=== PATIENT | female | born 1940 | race Caucasian/White ===

== ENCOUNTER 2019-10-27 19:34 | Emergency (ER) | payer MEDICARE, OTHER, SELFPAY ==
[2019-10-27] VITALS (18 sets, daily range): BP systolic 133–166; BP diastolic 68–83; PULSE 65–83; RESP 13–22; TEMP 37.1–37.9; O2SAT 92–97; BMI 23.6
--- NOTE | 2019-10-27 19:42 | ED_ITS ---
Entered by Lilibeth Staton, acting as scribe for Anya Werner DO HPI - Fever General: Chief Complaint: Weakness Stated Complaint: general weakness Time Seen by Provider: 10/27/19 19:39 Source: patient Mode of arrival: EMS Limitations: no limitations History of Present Illness: HPI Narrative: 79 yo f came to the er by ems for fever and just not feeling well. Onset was 2 days ago. Pt states that she just does not feel good and that has also had a fever for 2 days. Highest that the fever has been around 103. Pt also said that she came because her daughter was worried about her as well. MD elicited complaint: fever and weakness Onset (ago): day(s) (2 days ago) Exacerbating factors: nothing Relieving factors: nothing Associated symptoms: Reports no associated symptoms; Deny abdominal pain, back/flank pain, chills, chest pain, diarrhea, dysuria, extremity pain, headache(s), nasal congestion, nausea, sinus pain or vomiting Treatments prior to arrival fever: none Review of Systems Const: Denies: fever, chills, change in appetite or malaise Eyes: Denies: change in vision, blurry vision, eye discharge or eye redness ENMT: Denies: throat pain, uvular edema, painful swallowing, mouth pain, dental pain, nasal congestion or facial/sinus pain Card: Denies: chest pain, irregular heart rhythm, swelling of feet/ankles, shortness of breath on exertion, shortness of breath when lying down or leg pain with exertion Resp: Denies: shortness of breath, productive cough, wheezing or coughing up blood GI: Denies: abdominal pain, nausea, vomiting, diarrhea, constipation or fecal incontinence : Denies: flank pain, difficulty urinating, painful urination, urinary frequency, urinary urgency or urinary hesitancy Musc: Denies: neck pain, back pain, extremity pain or extremity swelling Skin/Breast: Denies: rash, itching, redness, yellow skin or dry skin Neuro: Denies: headache, numbness in extremities, weakness in extremities, changes in sensation, lack of coordination or difficulty walking Psych: Denies: anxiety, depression, mood swings, panic attacks, sleeping less, suicidal ideation or homicidal ideation Endo: Denies: excessive urination, excessive thirst or tired all the time Adarsh/Lymph: Denies: easy bruising, petechiae or enlarged lymph nodes All/Imm: Denies: hives, throat swelling, facial swelling, acute wheezing or seasonal allergies PFSH ED PFSH: Statuses (acute, chronic, etc) shown below reflect problem list status as previously entered and may not be historically accurate Social History Smoking and tobacco status: never smoked Physical Exam Const: COMMON NORMALS: no apparent distress, oriented x3, no limitations, healthy appearing, alert and well nourished GENERAL APPEARANCE: cooperative, comfortable, well kempt and well developed ORIENTATION/CONSCIOUSNESS: Yes awake, Yes oriented to person, Yes oriented to place and Yes oriented to time HENMT: COMMON NORMALS: normocephalic, head/scalp atraumatic, hearing grossly normal bilaterally, external ears normal, EAC's normal, TM's normal bilaterally, external nose normal, nasal mucous membranes and turbinates normal, moist oral mucous membranes, oropharynx normal, dentition normal and gingiva normal HEAD & SCALP: normal to inspection, normocephalic and atraumatic FACE & SINUS: normal facial exam NOSE: external nose normal and nasal mucous membranes and turbinates normal EXTERNAL EAR: Yes external ears normal EXTERNAL AUDITORY CANAL: EAC's normal TYMPANIC MEMBRANE: TM's normal bilaterally MOUTH: oral and palatal mucosa normal, lip normal and tongue normal THROAT: no uvular edema Eye: COMMON NORMALS: PERRL, EOMs intact bilaterally, conjunctivae normal, no scleral icterus and normal visual gabriel by confrontation GENERAL EYE: normal appearance of both eyes and normal light reflex VISUAL ACUITY: Yes acuity no rmal ALIGNMENT: Yes alignment normal PERIORBITAL: periorbital findings normal EYELID: eyelids normal CONJUNCTIVA: Yes conjunctivae normal SCLERA: sclerae normal PUPIL: Yes PERRL and Yes accommodation reflex normal DIRECT OPHTHALMOSCOPY: Yes normal light reflex Neck/C-Spine: COMMON NORMALS: full ROM, no lymphadenopathy, supple, no meningeal signs and no JVD GENERAL: Yes normal visual inspection CAROTIDS: Yes normal carotid upstroke CERVICAL SPINE: Yes cervical ROM normal Lymph: LYMPHATIC: no lymphadenopathy noted Chest: COMMONS NORMALS: inspection of chest normal CHEST: Yes symmetrical chest wall rise Resp: COMMON NORMALS: normal respiratory effort, no retractions, no use of accessory muscles and clear to auscultation bilaterally EFFORT & INSPECTION: Yes able to speak in complete sentences and Yes symmetric chest movement AUSCULTATION: clear to auscultation bilaterally Cardio: COMMON NORMALS: no JVD, regular rate, regular rhythm, S1 normal heart sound, S2 normal heart sound, no murmurs and peripheral pulses 2+ throughout RATE: regular rate RHYTHM: regular rhythm HEART SOUNDS: S1 normal and S2 normal PERIPHERAL PULSES: pulses 2+ throughout GI: COMMON NORMALS: normal to inspection, nondistended, normoactive bowel sounds and non-tender : COMMON NORMALS: Yes no CVA tenderness BLADDER/KIDNEY EXAM: Yes no CVA tenderness Back/Pelvis: COMMON NORMALS: no CVA tenderness, thoracic and lumbar spine normal to inspection, no thoracic nor lumbar tenderness and thoraco-lumbar ROM normal Extremity: COMMON NORMALS: normal to inspection, full ROM, normal capillary refill, no calf tenderness and no pedal edema Neuro: COMMON NORMALS: oriented x3, CN's II-XII intact bilaterally, moves all extremities, no focal motor deficits, no sensory deficits noted and gait normal SENSORIUM/ORIENTATION: Yes alert, Yes oriented to person, Yes oriented to place and Yes oriented to time MENINGEAL SIGNS: Yes no meningeal signs SPEECH: speech normal GAIT: Yes normal gait MOTOR EXAM: strength 5/5 throughout, no pronator drift and no tremor noted Psych: COMMON NORMALS: mental status grossly normal, thought process normal, cooperative, affect normal, speech normal and activity/motor behavior normal APPEARANCE: Yes well kempt SPEECH: Yes normal speech THOUGHT PROCESS: normal thought process THOUGHT CONTENT: Yes normal thought content IN SIGHT: insight good Skin: COMMON NORMALS: no rashes or lesions noted, no wounds, skin turgor normal and no jaundice GENERAL SKIN EXAM: no rashes or lesions noted and turgor normal Course Vital Signs: Vital signs: Vital Signs Temperature 100.3 F H 10/27/19 19:42 Pulse Rate 72 10/27/19 21:15 Respiratory Rate 17 10/27/19 21:15 Blood Pressure 166/74 10/27/19 21:25 Pulse Oximetry 94 10/27/19 21:25 MDM - Fever MDM Narrative: Medical decision making narrative: Patient presents with fever and generalized fatigue and malaise x 2 days. Noted to be febrile upon arrival. She is alert and oriented, co mild chest congestion no nv etc. Influenza A pos itive. Discussed results with patient and family, patient able to ambulate about the department. Advised I will allow her to go home, family agrees but advised if ANY deterioration she is to return for possible admission. Advised that symptom onset greater than 48 hours, therefore no prescription for Tamiflu. Medical Records: Attestation: I reviewed the patient's medical records. Lab Data: Attestation: I reviewed the patient's lab results. Labs: Lab Results 10/27/19 10/27/19 10/27/19 Range/Units 19:15 19:15 19:56 WBC 6.5 (4.0-10.0) 10^3/ uL RBC 4.75 (4.1-5.3) 10^6/u L Hgb 12.6 (11.5-15.3) g/dL Hct 38.6 (37.0-47.0) % MCV 81.3 (81-99) fL MCH 26.5 L (28.0-34.0) pg MCHC 32.6 (30.0-36.0) g/dL RDW 14.1 (12.1-15.1) % Plt Count 332 (130-400) 10^3/c mm MPV 9.3 (7.4-10.4) fL Neut % (Auto) 52.5 % Lymph % (Auto) 32.4 % Bleckley % (Auto) 11.8 % Eos % (Auto) 1.8 % Baso % (Auto) 1.2 % Neut # (Auto) 3.4 (1.8-7.7) 10^3/u L Lymph # (Auto) 2.1 (0.8-4.8) 10^3/u L Bleckley # (Auto) 0.8 (0.2-0.9) 10^3/u L Eos # (Auto) 0.1 (0.0-0.8) 10^3/u L Baso # (Auto) 0.1 (0.0-0.1) 10^3/u L Nucleated RBC % (a uto) 0 % Nucleated RBCs # 0.0 /100WBC Sodium 131 L (136-145) mmol/L Potassium 3.9 (3.5-5.1) mmol/L Chloride 93 L (98-107) mmol/L Carbon Dioxide 23 (22-29) mmol/L Anion Gap 18.9 (5-19) BUN 11 (8-23) mg/dL Creatinine 1.1 H (0.5-0.9) mg/dL Glucose 121 H (74-106) mg/dL POC Glucose 116 (70-110) mg/dL Calcium 9.9 (8.8-10.2) mg/Dl Total Bilirubin 0.3 (0.15-1.2) mg/dL AST 17 (0-32) U/L ALT 10 (0-33) U/L Alkaline Phosphata se 130 H (35-105) IU/L Total Protein 7.8 (6.6-8.7) g/dL Albumin 4.6 (3.5-5.2) g/dL Globulin 3.2 (1.3-4.6) g/dL Urine Color (Yellow) Urine Appearance (CLEAR) Urine pH (5-7) Ur Specific Gravit y (1.005-1.030) Urine Protein (Negative) Urine Glucose (UA) (Normal) Urine Ketones (Negative) Urine Occult Blood (Negative) Urine Nitrate (Negative) Urine Bilirubin (NEGATIVE) Urine Urobilinogen (Negative) mg/dL Ur Leukocyte Yenny ase (Negative) Urine RBC (0-2) /hpf Urine WBC (0-5) /hpf Ur Squamous Epith Cells (0-5) Urine Bacteria (NONE) Influenza Type A A g (Negative) POC Influenza B Ag (Negative) 10/27/19 10/27/19 Range/Units 20:02 21:03 WBC (4.0-10.0) 10^3/ uL RBC (4.1-5.3) 10^6/u L Hgb (11.5-15.3) g/dL Hct (37.0-47.0) % MCV (81-99) fL MCH (28.0-34.0) pg MCHC (30.0-36.0) g/dL RDW (12.1-15.1) % Plt Count (130-400) 10^3/c mm MPV (7.4-10.4) fL Neut % (Auto) % Lymph % (Auto) % Bleckley % (Auto) % Eos % (Auto) % Baso % (Auto) % Neut # (Auto) (1.8-7.7) 10^3/u L Lymph # (Auto) (0.8-4.8) 10^3/u L Bleckley # (Auto) (0.2-0.9) 10^3/u L Eos # (Auto) (0.0-0.8) 10^3/u L Baso # (Auto) (0.0-0.1) 10^3/u L Nucleated RBC % (a uto) % Nucleated RBCs # /100WBC Sodium (136-145) mmol/L Potassium (3.5-5.1) mmol/L Chloride (98-107) mmol/L Carbon Dioxide (22-29) mmol/L Anion Gap (5-19) BUN (8-23) mg/dL Creatinine (0.5-0.9) mg/dL Glucose (74-106) mg/dL POC Glucose (70-110) mg/dL Calcium (8.8-10.2) mg/Dl Total Bilirubin (0.15-1.2) mg/dL AST (0-32) U/L ALT (0-33) U/L Alkaline Phosphata se (35-105) IU/L Total Protein (6.6-8.7) g/dL Albumin (3.5-5.2) g/dL Globulin (1.3-4.6) g/dL Urine Color Yellow (Yellow) Urine Appearance Sl cloudy A (CLEAR) Urine pH 7 (5-7) Ur Specific Gravit y 1.010 (1.005-1.030) Urine Protein Neg (Negative) Urine Glucose (UA) Norm (Normal) Urine Ketones Negative (Negative) Urine Occult Blood Neg (Negative) Urine Nitrate Positive H (Negative) Urine Bilirubin Neg (NEGATIVE) Urine Urobilinogen Norm (Negative) mg/dL Ur Leukocyte Yenny ase 1+ H (Negative) Urine RBC 0-4 H (0-2) /hpf Urine WBC 25-40 H (0-5) /hpf Ur Squamous Epith Cells 0-4 H (0-5) Urine Bacteria 3+ H (NONE) Influenza Type A A g Positive H (Negative) POC Influenza B Ag Negative (Negative) Imaging Data^: CXR: Attestation: I personally reviewed and interpreted this imaging study as follows: My impression: nad EKG Data^: EKG 1: Attestation: I personally reviewed and interpreted this EKG as follows: EKG interpretation date: 10/27/19 EKG interpretation time: 19:59 Other EKG comments: nsr Discharge Plan Discharge Patient Disposition: Home, Self-Care Clinical Impression: Influenza A Condition: Stable Prescriptions: No Action Tylenol 325 mg Tablet 650 mg PO QID PRN (Reason: Pain) RF: 0 cetirizine 10 mg Tablet 10 mg PO DAILY PRN (Reason: Allergic Reaction) RF: 0 sotalol 80 mg Tablet 40 mg PO BID RF: 0 amlodipine 5 mg Tablet 7.5 mg PO DAILY RF: 0 Aspir-81 81 mg Tablet,Delayed Release (Dr/Ec) 81 mg PO DAILY RF: 0 levothyroxine 25 mcg Tablet 25 mcg PO DAILY RF: 0 warfarin 4 mg Tablet 4 mg PO DIRECTED RF: 0 warfarin 3 mg Tablet 3 mg PO DIRECTED RF: 0 Protonix 20 mg Tablet,Delayed Release (Dr/Ec) 40 mg PO DAILY PRN (Reason: Acid Reflux) RF: 0 niacin 500 mg Tablet 500 mg PO DAILY RF: 0 oxybutynin chloride 5 mg Tablet 5 mg PO DAILY RF: 0 cholecalciferol (vitamin D3) 2,000 unit Tablet 2,000 unit PO DAILY RF: 0 cyanocobalamin (vitamin B-12) 1,000 mcg Capsule 1,000 mcg PO DAILY RF: 0 Referrals: Abelardo Gannon DO [Primary Care Provider] - Discharge Diet: Plenty of fluids Discharge Activity: Resume usual activity Coding Level of Care Code ED Director Of Planning for Chg Fwd Exam Problem Focused The documentation recorded by the Shemar castillo Stephanie Lyn, accurately reflects the service I personally performed and the decisions made by Debbi calixto Amanda, DO Oct 27, 2019 19:34
--- NOTE | 2019-10-27 19:43 | XRR_ITS ---
PROCEDURE INFORMATION: Exam: XR Chest, 1 View Exam date and time: 10/27/2019 7:53 PM Age: 79 years old Clinical indication: Cough; Prior surgery; Surgery date: 6+ months; Surgery type: Stents TECHNIQUE: Imaging protocol: XR of the chest Views: 1 view. COMPARISON: CR Chest 2 views* [id number] 10/13/2017 7:15 AM FINDINGS: Patient is rotated and lung volumes are low, limiting assessment. Otherwise no focal pulmonary consolidation is demonstrated on this single frontal image. No significant obscuration of the lateral costophrenic angles is demonstrated. No significant vascular congestion is demonstrated. Visualized cardiac silhouette size appears within normal limits. XR/XR chest 1V portable [id number] IMPRESSION: No definite acute pulmonary process is demonstrated.
--- NOTE | 2019-10-27 19:43 | CTR_ITS ---
PROCEDURE INFORMATION: Exam: CT Head Without Contrast Exam date and time: 10/27/2019 7:47 PM Age: 79 years old Clinical indication: Dizziness; Additional info: Dizzy TECHNIQUE: Imaging protocol: Computed tomography of the head without contrast. Total DLP: 861.01 mGy-cm Radiation optimization: All CT scans at this facility use at least one of these dose optimization techniques: automated exposure control; mA and/or kV adjustment per patient size (includes targeted exams where dose is matched to clinical indication); or iterative reconstruction. COMPARISON: CT head wo con* [id number] 05/09/2018 1:28 PM FINDINGS: There is prominent low density in the bilateral periventricular white matter which may represent chronic small vessel ischemic disease in the appropriate clinical setting. The possibility of superimposed acute infarctions cannot be excluded; consider MRI brain (including diffusion images) for further assessment if clinically warranted and if patient has no contraindication to MRI. There are prominent intracranial arterial calcifications. There is mild cerebral cortical volume loss. Ventricles do not appear significantly dilated. No depressed calvarial fracture is demonstrated. There is opacification in some of the visualized paranasal sinuses, most compatible with mucosal disease. Visualized mastoid air cells demonstrate no significant opacification. CT/CT head wo con* [id number] IMPRESSION: Probable prominent chronic ischemic changes as discussed above. Radiation Dose CTDIVOL = (mGy): DLP = 861.01 (mGy-cm)
--- NOTE | 2019-10-27 19:43 | ECG_ITS ---
Measurements Intervals [place] Rate: 66 P: 65 RI: 186 QRS: 40 QRSD: 89 T: 36 QT: 448 QTc: 472 SINUS RHYTHM Compared to ECG 05/09/2018 13:51:28 No significant changes Electronically Signed On 10-28-2019 19:12:44 LITIGATION CLAIM REPRESENTATIVE by Sabina Mathews M.D. [email or web address]
[2019-10-27] MEDS: sodium chloride 0.9% 500 ML 999 ML IV (19:57)
[2019-10-27 20:00] LABS: Basophils # 0.1 10^3/uL (0.0-0.1); Basophils % 1.2 %; Eosinophils # 0.1 10^3/uL (0.0-0.8); Eosinophils % 1.8 %; Hematocrit 38.6 % (37.0-47.0); Hemoglobin 12.6 g/dL (11.5-15.3); Lymphocytes # 2.1 10^3/uL (0.8-4.8); Lymphocytes % 32.4 %; Mean Corpuscular HGB Conc 32.6 g/dL (30.0-36.0); Mean Corpuscular Hemoglobin 26.5 pg (28.0-34.0); Mean Corpuscular Volume 81.3 fL (81-99); Mean Platelet Volume 9.3 fL (7.4-10.4); Monocytes # 0.8 10^3/uL (0.2-0.9); Monocytes % 11.8 %; Neutrophils # 3.4 10^3/uL (1.8-7.7); Neutrophils % 52.5 %; Nucleated Red Blood Cells % 0 %; Platelet Count 332 10^3/cmm (130-400); Red Blood Count 4.75 10^6/uL (4.1-5.3); Red Cell Distribution Width 14.1 % (12.1-15.1); White Blood Count 6.5 10^3/uL (4.0-10.0)
[2019-10-27 20:01] LABS: Glucose Point of Care 116 mg/dL (70-110)
[2019-10-27 20:18] LABS: Alanine Aminotransferase 10 U/L (0-33); Albumin Level 4.6 g/dL (3.5-5.2); Alkaline Phosphatase 130 IU/L (35-105); Anion Gap 18.9 (5-19); Aspartate Amino Transferase 17 U/L (0-32); Blood Urea Nitrogen 11 mg/dL (8-23); Calcium 9.9 mg/Dl (8.8-10.2); Carbon Dioxide 23 mmol/L (22-29); Chloride 93 mmol/L (98-107); Globulin 3.2 g/dL (1.3-4.6); Glucose 121 mg/dL (74-106); Potassium 3.9 mmol/L (3.5-5.1); Sodium 131 mmol/L (136-145); Total Bilirubin 0.3 mg/dL (0.15-1.2); Total Protein 7.8 g/dL (6.6-8.7)
[2019-10-27 20:26] LABS: Influenza A by IFA Positive (Negative); Influenza B by IFA Negative (Negative)
--- NOTE | 2019-10-27 21:20 | PC.NURSE ---
Patient ambulating with a walker and 2 nursing staff members. Patient is tolerating ambulation well.
[2019-10-27 21:34] LABS: Add Urine Culture? Yes; Add Urine Microscopic? YES; Bacteria Urine 3+; Bilirubin Urine Neg (NEGATIVE); Blood Urine Neg (Negative); Glucose Urine UA Norm (Normal); Ketones Urine Negative (Negative); Leukocyte Esterase Urine 1+ (Negative); Nitrate Urine Positive (Negative); Protein Urine Neg (Negative); RBC Urine 0-4 /hpf (0-2); Squamous Epithelial Cell Urine 0-4 (0-5); Urine Color Yellow (Yellow); Urobilinogen Urine Norm (Negative); WBC Urine 25-40 /hpf (0-5); pH Urine 7 (5-7)
== END 2019-10-27 21:52 | disposition home or self-care (01) ==
PROVIDERS: Emergency Provider Emergency Medicine; Family Provider Family Medicine; PCP Family Medicine
DX: J10.1 Influenza due to other identified influenza virus with other respiratory manifestations (principal); Z79.82 Long term (current) use of aspirin; Z79.01 Long term (current) use of anticoagulants
CPT/HCPCS: 36416; 70450; 71045; 80053; 81003; 82962; 85025; 87077; 87086; 87186; 87804; 93005; 96360; 99282; J7040

== ENCOUNTER → 2019-10-31 10:30 | Outpatient (BNVA) | payer MEDICARE, OTHER, SELFPAY | PROVIDERS: Family Provider Family Medicine; PCP Family Medicine; Visit Provider Internal Medicine Cardiovascular Disease | DX: I48.91 Unspecified atrial fibrillation (principal) | CPT/HCPCS: 85610 ==

== ENCOUNTER → 2019-12-26 10:59 | Outpatient (BNVA) | payer MEDICARE, OTHER, SELFPAY | PROVIDERS: Family Provider Family Medicine; PCP Family Medicine; Visit Provider Internal Medicine Cardiovascular Disease | DX: I48.91 Unspecified atrial fibrillation (principal) | CPT/HCPCS: 85610 ==

== ENCOUNTER 2020-01-04 14:55 | Outpatient (CLI) | payer MEDICARE, OTHER, SELFPAY ==
--- NOTE | 2020-01-04 15:06 | MR_ITS ---
WS: [id number] MRI HEAD WITHOUT CONTRAST TECHNIQUE: Sagittal T1, T2 axial, T2 axial FLAIR, axial and coronal T1 images, axial susceptibility w eighted imaging, axial diffusion weighted images, and coronal T2 images were obtained. CLINICAL INFORMATION: MEMORY IMPAIRMENT,LOSS OF BALANCE, HX OF CVA COMPARISON: CT head 2019 FINDINGS: No evidence of restricted diffusion to suggest acute ischemia. Ventricular system and basal cisterns are patent. Moderate to advanced small vessel changes. Moderate parenchymal volume loss. Small vessel changes in the jimenez. Chronic lacunar infarct right cerebellum. Chronic lacunar infarcts in the thala mi bilaterally. Normal vascular flow voids at the skull base. No extra-axial fluid collections. Paran katia sinuses and mastoid air cells are well aerated. Normal optic chiasm and pituitary infundibulum. Moderate symmetric atrophy temporal lobes and hippoca mpal formations. No hemosiderin on susceptibly weighted images. MR/MR head wo con* [id number] IMPRESSION: 1. No evidence of restricted diffusion to suggest acute ischemia. 2. Moderate to advanced small vessel changes with moderate parenchymal volume loss. Small vessel changes in the jimenez. 3. Chronic lacunar infarct right cerebellum. 4. Chronic lacunar infarcts in the thalamus bilaterally. 5. Moderate symmetric atrophy involving the temporal lobes and hippocampal for mations.
== END 2020-01-04 14:56 | disposition home or self-care (01) ==
LOC: RADWPI 15:04
PROVIDERS: Family Provider Family Medicine; PCP Family Medicine; Visit Provider Family Medicine
DX: I63.9 Cerebral infarction, unspecified (principal); G31.89 Other specified degenerative diseases of nervous system; R41.3 Other amnesia; R26.89 Other abnormalities of gait and mobility; Z86.73 Personal history of transient ischemic attack (TIA), and cerebral infarction without residual deficits
CPT/HCPCS: 70551

== ENCOUNTER → 2020-05-14 13:52 | Outpatient (BNVA) | payer MEDICARE, OTHER, SELFPAY | PROVIDERS: Family Provider Family Medicine; PCP Family Medicine; Visit Provider Internal Medicine Cardiovascular Disease | DX: R42 Dizziness and giddiness (principal); I48.0 Paroxysmal atrial fibrillation; Z79.01 Long term (current) use of anticoagulants; I25.10 Atherosclerotic heart disease of native coronary artery without angina pectoris; I10 Essential (primary) hypertension; E78.01 Familial hypercholesterolemia; Z72.0 Tobacco use; M79.606 Pain in leg, unspecified | CPT/HCPCS: 85610 ==

== ENCOUNTER → 2020-11-18 15:51 | Outpatient (BNVA) | payer MEDICARE, OTHER, SELFPAY | PROVIDERS: PCP Family Medicine; Visit Provider Urology | DX: N39.0 Urinary tract infection, site not specified (principal); N95.2 Postmenopausal atrophic vaginitis; N39.41 Urge incontinence | CPT/HCPCS: 81003; 87086 ==

== ENCOUNTER 2021-02-09 12:39 | Outpatient (CLI) | payer MEDICARE, OTHER, SELFPAY ==
--- NOTE | 2021-02-09 13:08 | MR_ITS ---
WS: [id number] Exam: MR head wo/w con [id number] Date/Time of Exam: 02/09/2021 1:25 PM Reason For Exam: MEMORY IMPAIRMENT,CVA The brain is evaluated with multiplanar imaging in multiple imaging sequences both before and followi ng uneventful intravenous administration of gadolinium for contrast. There is a small area of restricted diffusion within the periventricular white matter substance along the body of the right lateral ventricle suggesting a small acute infarct. No sign of hemorrhage or m ass effect. There are microvascular ischemic changes identified in the cerebral white matter substanc e. No space-occupying mass or acute bleed is noted. Probable microvascular ischemic changes also note d in the brainstem. The cerebellum is unremarkable. The ventricles and basal cisterns are normal in t he size and configuration. Normal vascular flow voids are noted. Normal orbits and optic globes. The acoustic nerves are symmetrical side to side. There were no contrast-enhancing lesions seen. There is diffuse cerebral atrophy with volume loss. Fluid level noted in the right maxillary sinus suggesting active sinusitis. Remaining facial sinuses were clear. The mastoids are clear. MR/MR head wo/w con [id number] IMPRESSION: 1. Small acute infarct involving the periventricular white matter substance tony ng the body of the right lateral ventricle. No sign of mass effect or bleed. 2. Diffuse cerebral atrophy with volume loss and microvascular ischemic changes . Microvascular ischemic changes also noted in the brainstem. 3. Right maxillary sinusitis with fluid level.
[2021-02-09] MEDS: gadobenate dimeglumine 20 mL vial IV (13:51)
== END 2021-02-09 12:40 | disposition home or self-care (01) ==
PROVIDERS: PCP Family Medicine; Visit Provider Family Medicine
DX: R41.3 Other amnesia (principal); I63.9 Cerebral infarction, unspecified; G31.9 Degenerative disease of nervous system, unspecified; J32.0 Chronic maxillary sinusitis
CPT/HCPCS: 70553; 81003; 87077; 87086; 87184; A9577

== ENCOUNTER 2021-02-16 13:01 | Outpatient (CLI) | payer MEDICARE, OTHER, SELFPAY ==
--- NOTE | 2021-02-16 14:15 | US_ITS ---
WS: [id number] ULTRASOUND RENAL TECHNIQUE: Ultrasound examination of both kidneys. CLINICAL INFORMATION: N30.80 - Other cystitis without hematuria COMPARISON: None. FINDINGS: RIGHT: Right kidney is normal in size and appearance. Echogenicity: Normal. Cortical thickness: 1.1 cm; Normal. Hydronephrosis: None. Perinephric fluid: None. Right kidney measures: 9.2,8.9 cm x 4.9,5.3 cm x 4.6,4.8 cm. LEFT: Left kidney is normal in size and appearance. Echogenicity: Normal. Cortical thickness: 1.3 cm; Normal. Hydronephrosis: None. Perinephric fluid: None. Left kidney measures: 9.4 cm x 5.6 cm x 4.9 cm. Normal visualized aorta. Normal bladder US/US renal BI* [id number] IMPRESSION: Normal renal ultrasound
--- NOTE | 2021-02-16 15:00 | XRR_ITS ---
PROCEDURE INFORMATION: Exam: XR Abdomen Exam date and time: 02/16/2021 1:09 PM Age: 80 years old Clinical indication: Condition or disease; Other: N30.80 - other cystitis without hematuria TECHNIQUE: Imaging protocol: XR of the abdomen. Views: Frontal supine view of the abdomen. 1 View. COMPARISON: No relevant prior studies available. FINDINGS: Gastrointestinal tract: There is prominence of the amount of stool in the colon. There is no evidence of bowel obstruction or dilatation. Bones/joints: A total right hip prosthesis is present. Chronic degenerative changes are present in the spine with joint space narrowing sclerosis and small osteophytes. Small calcifications projecting on the sacrum probably represent small benign calcified lymph nodes. XR/XR KUB [id number] IMPRESSION: Mild prominence of the amount of stool in the colon. No acute abnormalities are seen.
== END 2021-02-16 13:02 | disposition home or self-care (01) ==
LOC: US 13:01
PROVIDERS: PCP Family Medicine; Visit Provider Urology
DX: N30.80 Other cystitis without hematuria (principal)
CPT/HCPCS: 74018; 76770

== ENCOUNTER → 2021-03-11 14:58 | Outpatient (BNVA) | payer MEDICARE, OTHER, SELFPAY | PROVIDERS: PCP Family Medicine; Visit Provider Urology | DX: N39.0 Urinary tract infection, site not specified (principal) | CPT/HCPCS: 81003 ==

== ENCOUNTER 2021-03-13 13:55 | Outpatient (CLI) | payer MEDICARE, OTHER, SELFPAY ==
--- NOTE | 2021-03-13 14:15 | USCV_ITS ---
Erlin Janae Age: 80 Gender: F : 1940 Exam Date: 03/13/2021 14:38 Ordering Phys: Maribel Lemus MD [email or web address]) Technologist: Christy Prado Exam Location: [facility] [place] Indication: PVD Risk Factors: Previous Vascular Surgery: RIGHT LEFT BP: 152.0 / 70.00 BP: 164.0/ 71.00 0 0 Waveform Velocity (cm/s) Velocity (cm/s) Waveform Biphasic 100.8 Iliac Prox 140.6 Triphasic Biphasic 94.7 Iliac Mid 136.8 Biphasic Biphasic 92.3 Iliac Distal 126.5 Monophasic Biphasic 81.9 DISPLAY MANAGER 140.5 Monophasic Biphasic 93.5 SFA Prox 60.5 Monophasic Biphasic 95.4 SFA Mid 11.4 Monophasic Biphasic SFA Dist Monophasic 98.3 78.8 Biphasic 139.8 POP 55.0 Monophasic Biphasic 42.1 INTERNATIONAL ACCOUNT REPRESENTATIVE 20.7 Monophasic Biphasic 45.6 DPA 31.0 Monophasic 0.8 KHOA 0.7 FINDINGS RT INTERNATIONAL ACCOUNT REPRESENTATIVE = 120, RT DPA = 130 LT INTERNATIONAL ACCOUNT REPRESENTATIVE = 100, LT DPA = 110 Mild diffuse plaques in the femoral and popliteal arteries on the right side Mild to moderate diffuse plaques in the femoral, popliteal and infrapopliteal vessels on the left side CONCLUSIONS 1. Abnormal resting KHOA of 0.7 on the left side, with features suggestive of moderate peripheral artery disease. 2. Abnormal resting KHOA on the right side of 0.8, with features suggestive of mild peripheral artery disease. Dr Sabina Mathews MD [facility] (Electronically Signed) Final Date: 16 Mar 2021 12:22 S
--- NOTE | 2021-03-13 15:00 | USCV_ITS ---
Janae Kern Age: 80 Gender: F : 1940 Exam Date: 03/13/2021 14:15 Ordering Phys: Maribel Lemus MD Technologist: Christy Prado Exam Location: [facility] – [place] Indication: PVD, CAD BP: 155 / 69 HR: 72 Rhythm: Sinus Technical Quality: Adequate MEASUREMENTS (Male / Female) Normal Values 2D ECHO LV Diastolic Diameter PLAX 3.6 cm 4.2 - 5.9 / 3.9 - 5.3 cm LV Systolic Diameter PLAX 1.6 cm LV Chamber Size 2.9 cm IVS Diastolic Thickness 1.0 cm 0.6 - 1.0 / 0.6 - 0.9 cm IVS Systolic Thickness 1.4 cm LVPW Diastolic Thickness 2.1 cm 0.6 - 1.0 / 0.6 - 0.9 cm LVPW Systolic Thickness 2.1 cm RV Chamber Size 3.4 cm LVOT Diameter 2.0 cm LV Ejection Fraction 2D Teich 87.2 % LV Ejection Fraction MOD 2C 32.0 % LV Ejection Fraction 2C AL 30.4 % LA Diameter 3.3 cm LA Width 4.0 cm LA Height 5.4 cm RA Width 3.3 cm RA Height 4.1 cm Aorta at Sinotubular Diameter 2.1 cm M-MODE LV Diastolic Diameter MM 4.7 cm 4.2 - 5.9 / 3.9 - 5.3 cm LV Systolic Diameter MM 2.5 cm LV Ejection Fraction MM Teich 78.7 % IVS Diastolic Thickness MM 0.7 cm 0.6 - 1.0 / 0.6 - 0.9 cm IVS Systolic Thickness MM 1.1 cm LVPW Diastolic Thickness MM 1.6 cm 0.6 - 1.0 / 0.6 - 0.9 cm LVPW Systolic Thickness MM 1.9 cm Aortic Annulus Diameter 2.7 cm LA Ao Ratio MM 1.2 MV E Point Septal Separation 0.4 cm DOPPLER AV Peak Velocity 159.0 cm/s LVOT Peak Velocity 101.3 cm/s AV Area Cont Eq vti 2.4 cm squared AV Area Cont Eq pk 2.1 cm squared MV Area PHT 3.2 cm squared Mitral E to A Ratio 1.4 MV E' Velocity 55.0 cm/s Mitral E to MV E' Ratio 10.0 Mitral E to LV E' Lateral Ratio 8.4 Mitral E to LV E' Septal Ratio 12.4 TR Peak Velocity 296.3 cm/s TR Peak Gradient 35.1 mmHg TV Peak E Velocity 68.0 cm/s Right Atrial Pressure 3.0 mmHg Pulmonary Artery Systolic Pressu 38.1 mmHg PV Peak Velocity 81.0 cm/s RV Acceleration Time 0.1 s RV Ejection Time 0.3 s RV AcT/ET 0.4 FINDINGS Left Ventricle Normal left ventricular size, systolic function and mildly increased wall thickness, with no regional wall motion abnormalities. Left ventricular ejection fraction is estimated at 65 %. Normal diastolic function. Right Ventricle Normal right ventricular size and systolic function. Right ventricular systolic pressure 38.1 mmHg. Right Atrium Normal right atrial size. Left Atrium Mildly increased left atrial size. Mitral Valve Structurally normal mitral valve. No mitral valve stenosis. Mild mitral valve regurgitation. Aortic Valve Thickened and calcified trileaflet aortic valve. No aortic valve stenosis. Mild aortic valve regurgitation. Tricuspid Valve Structurally normal tricuspid valve. Trace to mild tricuspid valve regurgitation. Pulmonic Valve Pulmonic valve not well visualized. No pulmonary valve stenosis. Trace pulmonary valve regurgitation. Pericardium No pericardial effusion. Aorta Normal sized aortic root. Normal sized inferior vena cava. CONCLUSIONS 1. Normal left ventricular size, systolic function and mildly increased wall thickness, with no regional wall motion abnormalities. Left ventricular ejection fraction is estimated at 65 %. Normal diastolic function. 2. Normal right ventricular size and systolic function. 3. Mild aortic valve regurgitation. 4. Mild mitral valve regurgitation. 5. Pulmonary artery pressure estimated at 38 mm Hg. 6. No prior similar studies to compare. Maribel Lemus MD (Electronically Signed) Final Date: 15 Mar 2021 18:03 S
--- NOTE | 2021-03-13 15:45 | USCV_ITS ---
Janae Kern Age: 80 Gender: F : 1940 Exam Date: 03/13/2021 14:29 Ordering Phys: Maribel Lemus MD ([email or web address]) Technologist: Christy Prado Exam Location: [facility] – [place] Indication: PVD Risk Factors: Previous Vascular Surgery: Right Brachial BP: / Left Brachial BP: / Right Left Velocity (cm/s) Spectral Plaque Velocity (cm/s) Spectral Plaque Syst/Diast Broadening Syst/Diast Broadening 86.00/ 6.60 Prox CCA 52.10 / 10.30 56.20/ 11.00 Mid CCA 59.80 / 8.50 61.70/ 14.30 Distal CCA 73.50 / 13.70 78.30/ 16.50 Prox ICA 111.70/ 17.10 67.30/ 13.20 Mid ICA 65.40 / 11.20 54.00/ 12.10 Distal ICA 56.20 / 11.20 91.50 ECA 138.00 1.39 ICA/CCA 1.87 Antegrade Vertebral Antegrade 33.80/ 6.40 cm/s 46.50/ 9.30 cm/s Bi Subclavian Bi 96.00 50.10 FINDINGS Mild diffuse plaques at the bifurcation and internal carotid arteries bilaterally Intimal thickening in the common carotid arteries bilaterally Normal Doppler flow velocities Antegrade flow in the vertebral arteries bilaterally CONCLUSIONS Mild diffuse plaques at the bifurcation and internal carotid arteries bilaterally. No significant stenosis, based on the above findings Dr Sabina Mathews MD [facility] (Electronically Signed) Final Date: 16 Mar 2021 12:17 S
== END 2021-03-13 13:56 | disposition home or self-care (01) ==
LOC: RAD 14:02
PROVIDERS: PCP Family Medicine; Visit Provider Internal Medicine Cardiovascular Disease
DX: I63.9 Cerebral infarction, unspecified (principal); R42 Dizziness and giddiness; I25.10 Atherosclerotic heart disease of native coronary artery without angina pectoris; I67.82 Cerebral ischemia; I73.9 Peripheral vascular disease, unspecified; I08.0 Rheumatic disorders of both mitral and aortic valves; I65.23 Occlusion and stenosis of bilateral carotid arteries
CPT/HCPCS: 93306; 93880; 93925

== ENCOUNTER → 2021-07-07 14:08 | Outpatient (BNVA) | payer MEDICARE, OTHER, SELFPAY | PROVIDERS: PCP Family Medicine; Visit Provider Nurse Practitioner Family | DX: N39.41 Urge incontinence (principal); N39.0 Urinary tract infection, site not specified | CPT/HCPCS: 81003 ==

== ENCOUNTER → 2021-12-30 10:18 | Outpatient (BNVA) | payer MEDICARE, OTHER, SELFPAY | PROVIDERS: PCP Family Medicine; Visit Provider Internal Medicine Cardiovascular Disease | DX: Z79.01 Long term (current) use of anticoagulants (principal) ==

== ENCOUNTER → 2022-01-07 15:39 | Outpatient (BNVA) | payer MEDICARE, OTHER, SELFPAY | PROVIDERS: PCP Family Medicine; Visit Provider Internal Medicine Cardiovascular Disease | DX: Z79.01 Long term (current) use of anticoagulants (principal) ==

== ENCOUNTER → 2022-01-14 13:16 | Outpatient (BNVA) | payer MEDICARE, OTHER, SELFPAY | PROVIDERS: PCP Family Medicine; Visit Provider Internal Medicine Cardiovascular Disease | DX: I48.0 Paroxysmal atrial fibrillation (principal); Z79.01 Long term (current) use of anticoagulants ==

== ENCOUNTER → 2022-01-22 12:38 | Outpatient (BNVA) | payer MEDICARE, OTHER, SELFPAY | PROVIDERS: PCP Family Medicine; Visit Provider Internal Medicine Cardiovascular Disease | DX: Z79.01 Long term (current) use of anticoagulants (principal) ==

== ENCOUNTER → 2022-01-29 14:23 | Outpatient (BNVA) | payer MEDICARE, OTHER, SELFPAY | PROVIDERS: PCP Family Medicine; Visit Provider Internal Medicine Cardiovascular Disease | DX: Z79.01 Long term (current) use of anticoagulants (principal) ==

== ENCOUNTER → 2022-02-03 11:39 | Outpatient (BNVA) | payer MEDICARE, OTHER, SELFPAY | PROVIDERS: PCP Family Medicine; Visit Provider Internal Medicine Cardiovascular Disease | DX: Z79.01 Long term (current) use of anticoagulants (principal) ==

== ENCOUNTER → 2022-02-10 09:17 | Outpatient (BNVA) | payer MEDICARE, OTHER, SELFPAY | PROVIDERS: PCP Family Medicine; Visit Provider Internal Medicine Cardiovascular Disease | DX: Z79.01 Long term (current) use of anticoagulants (principal) ==

== ENCOUNTER → 2022-02-19 08:41 | Outpatient (BNVA) | payer MEDICARE, OTHER, SELFPAY | PROVIDERS: PCP Family Medicine; Visit Provider Internal Medicine Cardiovascular Disease | DX: Z79.01 Long term (current) use of anticoagulants (principal) ==

== ENCOUNTER → 2022-02-26 09:50 | Outpatient (BNVA) | payer MEDICARE, OTHER, SELFPAY | PROVIDERS: PCP Family Medicine; Visit Provider Internal Medicine Cardiovascular Disease | DX: Z79.01 Long term (current) use of anticoagulants (principal) ==

== ENCOUNTER → 2022-03-05 09:47 | Outpatient (BNVA) | payer MEDICARE, OTHER, SELFPAY | PROVIDERS: PCP Family Medicine; Visit Provider Internal Medicine | DX: Z79.01 Long term (current) use of anticoagulants (principal) ==

== ENCOUNTER → 2022-03-12 12:14 | Outpatient (BNVA) | payer MEDICARE, OTHER, SELFPAY | PROVIDERS: PCP Family Medicine; Visit Provider Internal Medicine Cardiovascular Disease | DX: Z79.01 Long term (current) use of anticoagulants (principal) ==

== ENCOUNTER → 2022-03-19 10:19 | Outpatient (BNVA) | payer MEDICARE, OTHER, SELFPAY | PROVIDERS: PCP Family Medicine; Visit Provider Internal Medicine Cardiovascular Disease | DX: Z79.01 Long term (current) use of anticoagulants (principal) ==

== ENCOUNTER → 2022-03-26 08:49 | Outpatient (BNVA) | payer MEDICARE, OTHER, SELFPAY | PROVIDERS: PCP Family Medicine; Visit Provider Internal Medicine | DX: Z79.01 Long term (current) use of anticoagulants (principal) ==

== ENCOUNTER → 2022-04-01 09:47 | Outpatient (BNVA) | payer MEDICARE, OTHER, SELFPAY | PROVIDERS: PCP Family Medicine; Visit Provider Internal Medicine | DX: Z79.01 Long term (current) use of anticoagulants (principal) ==

== ENCOUNTER → 2022-04-08 17:19 | Outpatient (BNVA) | payer MEDICARE, OTHER, SELFPAY | PROVIDERS: PCP Family Medicine; Visit Provider Internal Medicine | DX: Z79.01 Long term (current) use of anticoagulants (principal) ==

== ENCOUNTER → 2022-04-15 11:56 | Outpatient (BNVA) | payer MEDICARE, OTHER, SELFPAY | PROVIDERS: PCP Family Medicine; Visit Provider Internal Medicine Cardiovascular Disease | DX: I73.9 Peripheral vascular disease, unspecified (principal); I48.0 Paroxysmal atrial fibrillation; Z86.73 Personal history of transient ischemic attack (TIA), and cerebral infarction without residual deficits; M79.604 Pain in right leg; M79.605 Pain in left leg; Z79.01 Long term (current) use of anticoagulants; E78.01 Familial hypercholesterolemia; I25.10 Atherosclerotic heart disease of native coronary artery without angina pectoris; I10 Essential (primary) hypertension; F17.200 Nicotine dependence, unspecified, uncomplicated | CPT/HCPCS: 99213; 99214 ==

== ENCOUNTER → 2022-04-16 08:20 | Outpatient (BNVA) | payer MEDICARE, OTHER, SELFPAY | PROVIDERS: PCP Family Medicine; Visit Provider Internal Medicine | DX: Z79.01 Long term (current) use of anticoagulants (principal) ==

== ENCOUNTER → 2022-04-23 11:49 | Outpatient (BNVA) | payer MEDICARE, OTHER, SELFPAY | PROVIDERS: PCP Family Medicine; Visit Provider Internal Medicine | DX: Z79.01 Long term (current) use of anticoagulants (principal) ==

== ENCOUNTER → 2022-04-30 09:12 | Outpatient (BNVA) | payer MEDICARE, OTHER, SELFPAY | PROVIDERS: PCP Family Medicine; Visit Provider Internal Medicine Cardiovascular Disease | DX: Z79.01 Long term (current) use of anticoagulants (principal) ==

== ENCOUNTER → 2022-05-05 16:08 | Outpatient (BNVA) | payer MEDICARE, OTHER, SELFPAY | PROVIDERS: PCP Family Medicine; Visit Provider Internal Medicine | DX: Z79.01 Long term (current) use of anticoagulants (principal) ==

== ENCOUNTER → 2022-05-11 10:15 | Outpatient (BNVA) | payer MEDICARE, OTHER, SELFPAY | PROVIDERS: PCP Family Medicine; Visit Provider Internal Medicine | DX: Z79.01 Long term (current) use of anticoagulants (principal) ==

== ENCOUNTER 2022-07-12 08:04 | Outpatient (CLI) | payer MEDICARE, OTHER, SELFPAY ==
--- NOTE | 2022-07-12 08:30 | CT_ITS ---
WS: [id number] CTA ABDOMINAL AORTA WITH RUNOFF TECHNIQUE: Contrast enhanced CTA of the abdominal aorta with bilateral lower extremity runoff. Multip lanar reformatted images were obtained. MIP reformats were also reviewed. CLINICAL INFORMATION: leg pain COMPARISON: None. DLP: 919.[address] scans at [facility] use at least one of these dose optimization techniques: automated e xposure control; mA and/or kV adjustment per patient size (includes targeted exams where dose is matc hed to clinical indication); or iterative reconstruction. FINDINGS: Lobulated multifocal aneurysmal infrarenal abdominal aorta. Distal aneurysm measures 2.1 x 2.1 x 3.5 cm AP by transverse by craniocaudal. Smaller proximal infrarenal abdominal aortic aneurysm measuring 1.7 x 2.0 cm AP by transverse. Celiac and SMA are patent. Mild calcification at the celiac and SMA origins. Proximal renal arteries are patent. Mild calcification of the RIGHT renal artery ostia. KATYA is patent. Ulcerated atheromatous disease in the mid and distal abdominal aorta. This is similar in appearance to 2013. RIGHT SHANIQUA. Bilateral TKAs. Prior hysterectomy and cholecystectomy. Cardiomegaly. Bibasilar atelectasi s. Moderate esophageal hiatal hernia. Adrenal glands are normal. Portal vein and splenic vein are pat ent. Enhancing indeterminant lesion RIGHT hepatic lobe measuring 14 mm is new since 2013. This is non specific and metastatic disease not excluded. Cortical scarring both kidneys. Sigmoid diverticulosis. Diffuse bladder wall thickening.5 mm noncalcified nodule RIGHT lower lobe. RIGHT: 50% calcified stenosis involving the RIGHT common iliac origin. RIGHT common iliac artery is p atent. Moderate atheromatous disease. Internal iliac and external iliac arteries are patent. Common f emoral artery is patent. Superficial femoral and deep femoral arteries are patent. Mild to moderate s egmental atheromatous disease involving the superficial femoral artery with stenosis approximately 30 -40% in the proximal thigh. SFA remains patent to the adductor hiatus. Moderate approximately 50% anette nosis involving the proximal popliteal artery. Segmental moderate stenosis involving the popliteal ar audi which is patent to the trifurcation.Three-vessel runoff to the ankle. Poor flow in the posterior tibial artery. LEFT: LEFT common iliac artery is patent. Ulcerated atheromatous plaque in the mid common iliac arter y with ulceration/pseudoaneurysm measuring 10 mm. External iliac artery and internal iliac arteries a re patent. Common femoral artery is patent. Moderate stenosis involving the superficial femoral arter y in the proximal thigh measuring approximately 60%. Segmental moderate stenosis superficial femoral artery which remains patent to the mid thigh. Superficial femoral artery is occluded in the mid thigh . Proximal popliteal artery is occluded at the adductor hiatus. Reconstitution of the popliteal arter y [id number]. Mild to moderate segmental stenosis involving the popliteal artery which remains pa tent to the trifurcation. Three-vessel runoff to the ankle. CT/CT angio abd aorta runof [id number] IMPRESSION: 1. RIGHT: Moderate stenosis RIGHT common iliac artery origin measuring approxi mately 50%. Moderate segmental stenosis involving the superficial femoral and p opliteal arteries which remain patent. Three-vessel runoff to the ankle. Poor f low in the posterior tibial artery. 2. LEFT: Ulcerated atheromatous plaque in the mid common iliac artery with 10 mm ulceration/pseudoaneurysm. Superficial femoral artery is occluded in the mid thigh. Popliteal artery is occluded proximally but reconstitutes above the kne e. Three-vessel runoff to the ankle. 3. Lobulated multifocal aneurysmal infrarenal abdominal aorta. Distal aneurysm measures 2.1 x 2.1 x 3.5 cm AP by transverse by craniocaudal. Smaller proximal infrarenal abdominal aortic aneurysm measuring 1.7 x 2.0 cm AP by transverse. This is only slightly progressed since 2013. 4. 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 5. Celiac and SMA are patent. 6. Enhancing lesion in the RIGHT hepatic lobe measuring 14 mm is new compared to 2013. Recommend further evaluation with MRI liver without and with gadoliniu m enhancement. This may represent a hemangioma/FNH but metastatic disease not e xcluded. 7. 5 mm noncalcified nodule RIGHT lower lobe measuring 5 mm. Recommend 6 month follow-up chest CT. 8. Moderate esophageal hiatal hernia.
[2022-07-12 08:37] LABS: Blood Urea Nitrogen 11 mg/dL (8-23)
[2022-07-12] MEDS: iohexol 350 mg/mL 100 mL Btl IV (08:50)
== END 2022-07-12 08:05 | disposition home or self-care (01) ==
LOC: RAD 08:04
PROVIDERS: PCP Family Medicine; Visit Provider Internal Medicine Cardiovascular Disease
DX: I73.9 Peripheral vascular disease, unspecified (principal); I70.8 Atherosclerosis of other arteries; I71.4 Abdominal aortic aneurysm, without rupture; I70.0 Atherosclerosis of aorta; K44.9 Diaphragmatic hernia without obstruction or gangrene; M79.606 Pain in leg, unspecified
CPT/HCPCS: 75635; 82565; 84520

== ENCOUNTER → 2022-07-19 13:02 | Outpatient (BNVA) | payer MEDICARE, OTHER, SELFPAY | PROVIDERS: PCP Family Medicine; Visit Provider Nurse Practitioner Family | DX: I73.9 Peripheral vascular disease, unspecified (principal); I10 Essential (primary) hypertension; Z87.891 Personal history of nicotine dependence; I48.0 Paroxysmal atrial fibrillation; Z79.01 Long term (current) use of anticoagulants; Z79.82 Long term (current) use of aspirin | CPT/HCPCS: 99214 ==

== ENCOUNTER → 2022-07-27 11:58 | Outpatient (BNVA) | payer MEDICARE, OTHER, SELFPAY | PROVIDERS: PCP Family Medicine; Visit Provider Family Medicine | DX: I73.9 Peripheral vascular disease, unspecified (principal); I63.9 Cerebral infarction, unspecified; K76.9 Liver disease, unspecified; R91.1 Solitary pulmonary nodule | CPT/HCPCS: 80053; 85025; 85651 ==

== ENCOUNTER → 2022-08-16 11:04 | Outpatient (BNVA) | payer MEDICARE, OTHER, SELFPAY | PROVIDERS: PCP Family Medicine; Visit Provider Internal Medicine Cardiovascular Disease | DX: R91.1 Solitary pulmonary nodule (principal); K76.9 Liver disease, unspecified; I73.9 Peripheral vascular disease, unspecified; I63.9 Cerebral infarction, unspecified; Z79.01 Long term (current) use of anticoagulants; E78.01 Familial hypercholesterolemia; I10 Essential (primary) hypertension; I25.10 Atherosclerotic heart disease of native coronary artery without angina pectoris; I48.0 Paroxysmal atrial fibrillation; I71.40 Abdominal aortic aneurysm, without rupture, unspecified; Z87.891 Personal history of nicotine dependence | CPT/HCPCS: 99214 ==

== ENCOUNTER → 2023-02-14 12:20 | Outpatient (BNVA) | payer MEDICARE, OTHER, SELFPAY | PROVIDERS: PCP Family Medicine; Visit Provider Internal Medicine Cardiovascular Disease | DX: I71.40 Abdominal aortic aneurysm, without rupture, unspecified (principal); I73.9 Peripheral vascular disease, unspecified; Z79.01 Long term (current) use of anticoagulants; I48.0 Paroxysmal atrial fibrillation; R42 Dizziness and giddiness; E78.01 Familial hypercholesterolemia; Z72.0 Tobacco use; I10 Essential (primary) hypertension; I25.10 Atherosclerotic heart disease of native coronary artery without angina pectoris | CPT/HCPCS: 85610; 99214 ==

== ENCOUNTER 2023-03-17 07:59 | Outpatient (CLI) | payer MEDICARE, OTHER, SELFPAY ==
--- NOTE | 2023-03-17 08:00 | USCV_ITS ---
Janae Kern Age: 82 Gender: F : 1940 Exam Date: 03/17/2023 08:27 Ordering Phys: Koffi Powell MD ([email or web address]) Technologist: ARRON [place] [facility] [place]ication: WEAKNESS, CAD BP: 126 / 62 HR: 85 Rhythm: Atrial fibrillation Technical Quality: Adequate MEASUREMENTS (Male / Female) Normal Values 2D ECHO LVOT Diameter 2.0 cm LV Ejection Fraction MOD 2C 71.5 % LV Ejection Fraction 2C AL 73.4 % LA Diameter 3.6 cm LA Width 3.6 cm LA Height 5.0 cm RA Width 3.7 cm RA Height 4.6 cm Aorta at Sinotubular Diameter 2.1 cm IVC Diameter 1.7 cm M-MODE Aortic Annulus Diameter 2.1 cm LA Ao Ratio MM 1.5 MV E Point Septal Separation 0.5 cm DOPPLER AV Peak Velocity 121.0 cm/s LVOT Peak Velocity 87.0 cm/s AV Area Cont Eq vti 2.7 cm squared AV Area Cont Eq pk 2.2 cm squared MV Peak Velocity 124.0 cm/s MV Area PHT 5.0 cm squared MV E' Velocity 72.0 cm/s Mitral E to MV E' Ratio 10.6 Mitral E to LV E' Lateral Ratio 10.3 Mitral E to LV E' Septal Ratio 11.0 TR Peak Velocity 273.2 cm/s TR Peak Gradient 29.9 mmHg TR Mean Velocity 273.3 cm/s TR Mean Gradient 31.1 mmHg TR Velocity Time Integral 122.2 cm Right Atrial Pressure 3.0 mmHg Pulmonary Artery Systolic Pressu 32.9 mmHg PV Peak Velocity 99.0 cm/s RV Acceleration Time 0.1 s RV Ejection Time 0.3 s RV AcT/ET 0.3 FINDINGS Left Ventricle Left ventricle is normal in size. LV systolic function is normal with EF of 60 to 65%. No regional wall motion abnormalities are seen. Right Ventricle Normal in size and function Right Atrium Dilated Left Atrium Dilated Mitral Valve Mild mitral regurgitation. Aortic Valve Aortic valve is thickened. No significant stenosis. Moderate aortic regurgitation. Tricuspid Valve Mild tricuspid regurgitation. Pulmonary artery systolic pressure is 30 to 35 mmHg. Pulmonic Valve Not well visualized. Trace pulmonic regurgitation. Pericardium Normal Aorta Normal in size IVC Appears to be normal CONCLUSIONS LV systolic function is normal with EF of 60 to 65%. Biatrial dilation Mild mitral regurgitation Moderate aortic regurgitation Mild tricuspid regurgitation Trace pulmonic regurgitation Compared to prior echocardiogram from 2020, no significant changes are seen Villa Gilbert MD (Electronically Signed) Final Date: 26 March 2023 13:09 S
== END 2023-03-17 08:00 | disposition home or self-care (01) ==
LOC: RAD 08:06
PROVIDERS: PCP Family Medicine; Visit Provider Internal Medicine Cardiovascular Disease
DX: I71.40 Abdominal aortic aneurysm, without rupture, unspecified (principal); I73.9 Peripheral vascular disease, unspecified; Z79.01 Long term (current) use of anticoagulants; R53.1 Weakness; I25.10 Atherosclerotic heart disease of native coronary artery without angina pectoris; I34.0 Nonrheumatic mitral (valve) insufficiency; I35.1 Nonrheumatic aortic (valve) insufficiency; I07.1 Rheumatic tricuspid insufficiency
CPT/HCPCS: 93306; 99214

== ENCOUNTER 2023-06-20 19:07 | Inpatient (IN) | payer MEDICARE, OTHER, SELFPAY ==
[2023-06-20 19:14] VITALS: BP 147/74; PULSE 86; RESP 18; TEMP 39.4; O2SAT 86; BMI 28.7
--- NOTE | 2023-06-20 19:18 | XRR_ITS ---
PROCEDURE INFORMATION: Exam: XR Chest Exam date and time: 06/20/2023 7:26 PM Age: 82 years old Clinical indication: Other: Fever TECHNIQUE: Imaging protocol: Radiologic exam of the chest. Views: 1 view. COMPARISON: No relevant prior studies available. FINDINGS: Lungs: Mild interstitial prominence bilaterally, more prominent lower lungs. No focal consolidation. Pleural spaces: Unremarkable. No pleural effusion. No pneumothorax. Heart/Mediastinum: Cardiac silhouette is borderline prominent. Vasculature: Arteriosclerosis of the thoracic aorta. Bones/joints: Visualized osseous structures show no acute abnormality. XR/XR chest 1V portable [id number] IMPRESSION: 1. Borderline prominent cardiac size. 2. Bilateral mild interstitial prominence, more prominent about the lower lungs. This could represent chronic bilateral interstitial lung changes versus acute mild bilateral interstitial pneumonitis. No consolidation or effusion.
--- NOTE | 2023-06-20 19:21 | ECG_ITS ---
[facility] Test Date: 2023-06-20 Pat Name: Janae Kern Department: Room: Gender: Female Financial Services Assistant: : 1940 Requested By: Christiano Berrios Order Number: [id number] Marcial MD: Villa Gilbert M.D. Measurements Intervals [place] Rate: 85 P: 0 [place]: 0 QRS: 35 QRSD: 80 T: 26 QT: 365 QTc: 435 Interpretive Statements ATRIAL FIBRILLATION MODERATE ST DEPRESSION [0.05+ mV ST DEPRESSION] Compared to ECG 10/27/2019 19:59:42 ST (T wave) deviation now present Sinus rhythm no longer present Electronically Signed On 06-20-2023 22:27:30 CDT by Villa Gilbert M.D. [id number]
--- NOTE | 2023-06-20 19:23 | W.ED.FEVER ---
HPI - Fever General: Chief Complaint: Fever Stated Complaint: shoulder/back pain Time Seen by Provider: 06/20/23 19:09 Source: patient and EMS Mode of arrival: EMS Limitations: no limitations History of Present Illness: See nursing assessment. Patient's had general malaise for approximately 2 days. This started after a cat bite to her left ankle 4 days ago. She has had increased fatigue, subjective fever, nausea, back and shoulder pain bilaterally. She denies any cough or dysuria. She states she is occasionally incontinent of urine which is normal for her. Family states cat bite occurred on . states the cat is up-to-date on his vaccinations. Patient's last tetanus immunization was about 15 years ago. Patient states she has had some swelling and increased warmth to the left ankle area. Patient had temperature of 100.4 at home per EMS report. Patient had A blood sugar prior arrival 156. Patient was given Tylenol by family at home. Patient given 4 mg Zofran by EMS prior to arrival. Patient denies any abdominal pain. Associated symptoms: Reports nausea; Deny abdominal pain, flank pain, chills, chest pain, headache(s) or vomiting Review of Systems Const: Reports: fever(s), body aches, fatigue and malaise; Denies: chills Eyes: Denies: change in vision ENMT: Denies: throat pain Card: Denies: chest pain or palpitations Resp: Denies: dyspnea or wheezing GI: Reports: nausea; Denies: abdominal pain or vomiting : Denies: flank pain Musc: Denies: neck pain Skin/Breast: Reports: rash, erythema, skin pain, skin tenderness, skin swelling and other (Puncture wound to left anterior lateral ankle. Mild soft tissue swelling. ); Denies: pruritus Neuro: Denies: headache(s) or numbness in extremities Psych: Denies: anxiety Adarsh/Lymph: Denies: enlarged lymph nodes PFSH ED PFSH: Medical History Abdominal aortic aneurysm (AAA) Anticoagulant long-term use ASHD (arteriosclerotic heart disease) Atrial fibrillation CVA (cerebral vascular accident) Cystitis cystica Essential hypertension Fibromyalgia Hyperlipidemia IBS (irritable bowel syndrome) Leg pain PAD (peripheral artery disease) Recurrent UTI Seizure disorder Tobacco abuse Urgency incontinence Vaginal atrophy Surgical History H/O: hysterectomy S/P angioplasty with stent S/P cataract extraction S/P gold S/P hip replacement S/P knee replacement Family History Mother , at age 47 CAD (coronary artery disease) Father , in his 70's Cancer Social History Smoking and tobacco status: former smoker Alcohol intake: never Marital status: Current occupational status: retired Supplemental [facility] Information: Patient history of one coronary stent before. Last tetanus about 15 years ago Physical Exam Const: COMMON NORMALS: no acute distress, patient oriented x3, no limitations and well nourished GENERAL APPEARANCE: cooperative OTHER: Temperature 103.0 HENMT: COMMON NORMALS: normocephalic and atraumatic HEAD & SCALP: normocephalic and atraumatic FACE & SINUS: normal facial exam Eye: COMMON NORMALS: EOMs intact bilaterally Neck/C-Spine: COMMON NORMALS: full ROM, no lymphadenopathy, supple and no meningeal signs GENERAL: Yes normal visual inspection Lymph: LYMPHATIC: no lymphadenopathy noted Chest: COMMONS NORMALS: normal inspection of the chest and normal palpation of entire chest wall CHEST: No Ecchymosis present and No rash Resp: COMMON NORMALS: normal respiratory effort, No retractions and clear to auscultation bilaterally EFFORT & INSPECTION: No respiratory distress AUSCULTATION: clear to auscultation bilaterally Cardio: COMMON NORMALS: regular rhythm and Peripheral pulses 2+ throughout JUGULAR VENOUS DISTENTION: no JVD RHYTHM: regular rhythm PERIPHERAL PULSES: Peripheral pulses 2+ throughout GI: COMMON NORMALS: Normal to inspection, nondistended, normoactive bowel sounds present, Soft to palpation, non-tender, No hepatosplenomegaly present and no masses PALPATION: Yes Soft to palpation and Yes No hepatosplenomegaly present : COMMON NORMALS: Yes no CVA tenderness BLADDER/KIDNEY EXAM: Yes no CVA tenderness Back/Pelvis: COMMON NORMALS: no CVA tenderness Extremity: COMMON NORMALS: normal to inspection, full ROM and capillary refill normal OTHER: Puncture wound to left ankle, mild surrounding cellulitis. Mild induration. No purulent discharge. Mild tenderness with palpation. Neuro: COMMON NORMALS: patient oriented x3, CN's II-XII intact bilaterally, no focal motor deficits and no sensory deficits noted MENINGEAL SIGNS: Yes no meningeal signs Psych: COMMON NORMALS: mental status grossly normal and Normal thought process present THOUGHT PROCESS: Normal thought process present Skin: OTHER: Cellulitis and puncture wound to left anterior lateral ankle. Course Vital Signs: Vital signs: Vital Signs Temperature 103.0 F H 06/20/23 19:14 Pulse Rate 86 06/20/23 19:14 Respiratory Rate 18 06/20/23 19:14 Blood Pressure 147/74 06/20/23 19:14 Pulse Oximetry 86 L 06/20/23 19:14 Oxygen Delivery Me thod Room Air 06/20/23 19:14 MDM - Fever Medical Decision Making 82-year-old female with generalized malaise, myalgias, fever, cat bite to the left anterior lateral ankle. Differential diagnoses include sepsis, bacteremia, influenza, COVID, urinary tract infection, pyelonephritis. History of atrial fibrillation on Coumadin. Patient with fever and elevated white blood cell count. Therefore, will treat with meropenem to cover cat bite. Patient has a penicillin allergy. Therefore, carbapenem would be appropriate for this infection. 2138: Discussed with Dr. Barrett hospitalist. Admitted as an inpatient. I placed bridge orders. Lab Data 06/20/23 19:00 06/20/23 19:00 Radiology Impressions Chest X-Ray 06/20/23 19:18 IMPRESSION: 1. Borderline prominent cardiac size. 2. Bilateral mild interstitial prominence, more prominent about the lower lungs. This could represent chronic bilateral interstitial lung changes versus acute mild bilateral interstitial pneumonitis. No consolidation or effusion. ADDENDUM: 06/20/23 2016 Comparison image has been made available October 27, 2019. Increased interstitial markings with today's exam, and particularly about the lower lungs, in relation to prior exam. Therefore, mild interstitial pneumonitis should be considered. No consolidation or effusion. Ankle X-Ray 06/20/23 19:33 IMPRESSION: 1. No fracture or acute osseous abnormality. 2. Mild soft tissue swelling or edema, without identification soft tissue gas or radiopaque soft tissue foreign body density. Laboratory Results WBC 15.91 10^3/uL (3.29-11.43) H 06/20/23 19:00 RBC 4.90 10^6/uL (3.85-5.65) 06/20/23 19:00 Hgb 13.70 g/dL (11.27-16.99) 06/20/23 19:00 Hct 41.2 % (36-47) 06/20/23 19:00 MCV 84.1 fl (85-98) L 06/20/23 19:00 MCH 28.0 pg (27-33) 06/20/23 19:00 MCHC 33.3 g/dL (30-55) 06/20/23 19:00 RDW 14.9 % (12.1-15.1) 06/20/23 19:00 Plt Count 415 10^3/cmm (157-399) H 06/20/23 19:00 MPV 9.3 fL (7.4-10.4) 06/20/23 19:00 Neut % (Auto) 78.7 % 06/20/23 19:00 Lymph % (Auto) 11.4 % 06/20/23 19:00 [place] % (Auto) 7.4 % 06/20/23 19:00 Eos % (Auto) 1.3 % 06/20/23 19:00 Baso % (Auto) 0.6 % 06/20/23 19:00 Neut # (Auto) 12.52 10^3/uL (1.8-7.7) H 06/20/23 19:00 Lymph # (Auto) 1.8 10^3/uL (0.8-4.8) 06/20/23 19:00 [place] # (Auto) 1.2 10^3/uL (0.2-0.9) H 06/20/23 19:00 Eos # (Auto) 0.2 10^3/uL (0.0-0.8) 06/20/23 19:00 Baso # (Auto) 0.1 10^3/uL (0.0-0.1) 06/20/23 19:00 Nucleated RBC % (auto) 0 % 06/20/23 19:00 Nucleated RBCs # 0.0 /100WBC 06/20/23 19:00 Sodium 139 mmol/L (136-145) 06/20/23 19:00 Potassium 3.6 mmol/L (3.5-5.1) 06/20/23 19:00 Chloride 100 mmol/L (98-107) 06/20/23 19:00 Carbon Dioxide 26 mmol/L (22-29) 06/20/23 19:00 Anion Gap 16.6 (5-19) 06/20/23 19:00 BUN 14 mg/dL (8-23) 06/20/23 19:00 Creatinine 0.9 mg/dL (0.5-0.9) 06/20/23 19:00 GFR Calculation Not Reportable 06/20/23 19:00 Glucose 130 mg/dL (65-115) H 06/20/23 19:00 Calculated Osmolality 290 mOsm/kg (285-295) 06/20/23 19:00 Lactic Acid 2.0 mmol/L (0.5-2.2) 06/20/23 19:46 Calcium 9.7 mg/dL (8.5-10.5) 06/20/23 19:00 Total Bilirubin 0.3 mg/dL (0.15-1.2) 06/20/23 19:00 AST 16 U/L (0-32) 06/20/23 19:00 ALT 10 U/L (0-33) 06/20/23 19:00 Alkaline Phosphatase 129 U/L (35-105) H 06/20/23 19:00 Troponin T Baseline 15 ng/L (0-10) H 06/20/23 19:00 Troponin T 120 Minute Cancelled 06/20/23 19:46 Delta Troponin T Cancelled 06/20/23 19:46 Total Protein 7.4 g/dL (6.6-8.7) 06/20/23 19:00 Albumin 5.0 g/dL (3.5-5.2) 06/20/23 19:00 Globulin 2.4 g/dL (1.3-4.6) 06/20/23 19:00 Urine Color Yellow (Yellow) 06/20/23 19:48 Urine Appearance Sl cloudy (CLEAR) A 06/20/23 19:48 Urine pH 5 (5-7) 06/20/23 19:48 Ur Specific [place] 1.020 (1.005-1.030) 06/20/23 19:48 Urine Protein Neg (Negative) 06/20/23 19:48 Urine Glucose (UA) Norm (Normal) 06/20/23 19:48 Urine Ketones Negative (Negative) 06/20/23 19:48 Urine Blood Neg (Negative) 06/20/23 19:48 Urine Nitrate Positive (Negative) H 06/20/23 19:48 Urine Bilirubin Neg (Negative) 06/20/23 19:48 Urine Urobilinogen Neg mg/dL (Negative) 06/20/23 19:48 Ur Leukocyte Esterase Trace (Negative) H 06/20/23 19:48 Urine RBC None /hpf (0-2) 06/20/23 19:48 Urine WBC 10-15 /hpf (0-5) H 06/20/23 19:48 Ur Squamous Epith Cells 0-4 /hpf (0-5) H 06/20/23 19:48 Amorphous Sediment Not Reportable 06/20/23 19:48 Urine Bacteria 3+ /hpf (NONE) H 06/20/23 19:48 Influenza Type A Ag negative (Negative) 06/20/23 19:50 Influenza Type B Ag negative (Negative) 06/20/23 19:50 SARS-CoV-2 Ag (Rapid) negative (Negative) 06/20/23 19:50 Imaging Data CXR: I personally reviewed and interpreted this imaging study as follows: My impression: Nothing acute. No cardiomegaly. No pleural effusion or infiltrate seen. Xray Ortho: I personally reviewed and interpreted this imaging study as follows: My impression: Mild soft tissue swelling. No evidence of air in the tissue. No fractures or foreign body seen. EKG Data EKG 1: I personally reviewed and interpreted this EKG as follows: EKG interpretation date: 06/20/23 EKG interpretation time: 19:44 Interpretation: Atrial fibrillation rate control with heart rate 85. Normal axis. Nonspecific ST-T changes throughout. Normal QRS. Normal T waves. Normal QT interval. No P waves. Discharge Plan Discharge Patient Disposition: Admitted As Inpatient Admit Provider: Kadi Barrett Clinical Impression: Cat bite of ankle Qualifiers: Encounter type: initial encounter Laterality: left Qualified Code(s): S91.052A - Open bite, left ankle, initial encounter Fever Qualifiers: Fever type: due to other condition Qualified Code(s): R50.81 - Fever presenting with conditions classified elsewhere Urinary tract infection Qualifiers: Urinary tract infection type: acute pyelonephritis Qualified Code(s): N10 - Acute pyelonephritis Condition: Stable Coding Level of Care Code ED Surfacer Operator for Pito Brown
--- NOTE | 2023-06-20 19:33 | XRR_ITS ---
PROCEDURE INFORMATION: Exam: XR Left Ankle Exam date and time: 06/20/2023 7:44 PM Age: 82 years old Clinical indication: Edema; Yes, it is localized; Additional info: Pain; Cat bite; Fever, soft tissue films TECHNIQUE: Imaging protocol: Radiologic exam of the left ankle. Views: 3 or more views. COMPARISON: No relevant prior studies available. FINDINGS: Bones/joints: No fracture or acute osseous abnormality. Ankle joint appears maintained. No abnormal soft tissue calcification. Calcaneal spur or enthesophyte formation noted. Soft tissues: Mild soft tissue swelling or edema. No abnormal soft tissue gas or radiopaque soft tissue foreign body. XR/XR ankle LT min 3V* [id number] IMPRESSION: 1. No fracture or acute osseous abnormality. 2. Mild soft tissue swelling or edema, without identification soft tissue gas or radiopaque soft tissue foreign body density.
[2023-06-20 19:37] LABS: Basophils # 0.1 10^3/uL (0.0-0.1); Basophils % 0.6 %; Eosinophils # 0.2 10^3/uL (0.0-0.8); Eosinophils % 1.3 %; Hematocrit 41.2 % (36-47); Lymphocytes # 1.8 10^3/uL (0.8-4.8); Lymphocytes % 11.4 %; Mean Corpuscular HGB Conc 33.3 g/dL (30-55); Mean Corpuscular Volume 84.1 fl (85-98); Mean Platelet Volume 9.3 fL (7.4-10.4); Monocytes # 1.2 10^3/uL (0.2-0.9); Monocytes % 7.4 %; Neutrophils # 12.52 10^3/uL (1.8-7.7); Neutrophils % 78.7 %; Nucleated Red Blood Cells % 0 %; Platelet Count 415 10^3/cmm (157-399); Red Cell Distribution Width 14.9 % (12.1-15.1); White Blood Count 15.91 10^3/uL (3.29-11.43)
[2023-06-20 20:02] LABS: Troponin(5th) Baseline 15 ng/L (0-10)
[2023-06-20 20:05] LABS: Alanine Aminotransferase 10 U/L (0-33); Alkaline Phosphatase 129 U/L (35-105); Anion Gap 16.6 (5-19); Aspartate Amino Transferase 16 U/L (0-32); Blood Urea Nitrogen 14 mg/dL (8-23); Calcium 9.7 mg/dL (8.5-10.5); Carbon Dioxide 26 mmol/L (22-29); Chloride 100 mmol/L (98-107); Globulin 2.4 g/dL (1.3-4.6); Glucose 130 mg/dL (65-115); Osmolality Calculated 290 mOsm/kg (285-295); Potassium 3.6 mmol/L (3.5-5.1); Sodium 139 mmol/L (136-145); Total Bilirubin 0.3 mg/dL (0.15-1.2); Total Protein 7.4 g/dL (6.6-8.7)
[2023-06-20] MEDS: acetaminophen 325 mg Tablet 650 MG PO (20:16)
[2023-06-20] MEDS: tetanus-diphtheria tox (adult) 0.5 mL SDV IM (20:17)
[2023-06-20] MEDS: meropenem 2,000 MG in sodium chloride 0.9% (100 ml) 100 ML 200 MG IV (20:32)
[2023-06-20 20:51] LABS: Add Urine Culture? Yes; Bacteria Urine 3+ /hpf; Bilirubin Urine Neg (Negative); Blood Urine Neg (Negative); Glucose Urine UA Norm (Normal); Ketones Urine Negative (Negative); Leukocyte Esterase Urine Trace (Negative); Nitrate Urine Positive (Negative); Protein Urine Neg (Negative); Squamous Epithelial Cell Urine 0-4 /hpf (0-5); Urine Color Yellow (Yellow); Urobilinogen Urine Neg (Negative); pH Urine 5 (5-7)
[2023-06-20 20:58] LABS: Influenza A by IFA negative (Negative); Influenza B by IFA negative (Negative); SARS Covid-2 Antigen negative (Negative)
[2023-06-20 22:21] LABS: Troponin 5 2HR 16.06 ng/L (0-10)
[2023-06-20 22:23] VITALS: BP 126/78; RESP 18; O2SAT 90
[2023-06-20 22:23] LABS: Troponin 5 2HR Delta 1.06 ABS# (0-10)
[2023-06-20 22:30] VITALS: BP 142/80; PULSE 91; RESP 17; TEMP 38.2; O2SAT 91
--- NOTE | 2023-06-20 23:19 | PM.HP ---
Providers/Chief Complaint Admitting Physician: Kadi Barrett MD Primary Care Provider: Abelardo Gannon DO Chief Complaint: shoulder/back pain History of Present Illness Janae Kern is a 82 year old female with history of recurrent UTI , urinary incontinence ,peripheral artery disease cerebrovascular accident hypertension atrial fibrillation on Coumadin 5 mg daily presented with complaint of fever and body aches for 2 days. She reports that her cat bit on her left ankle 4 days ago and since then she has not been feeling well. She further reported that she was bleeding heavily from the bite site 5 days ago. In ER she was found to have temperature of 103 ?F. She denies any nausea vomiting shortness of breath chest pain urinary or bowel complaints. Review of Systems General: Reports: 10 or more systems reviewed and unremarkable except in HPI and below Medications/Allergies Home Medications Medication Instructions Recorded Confirmed Last Taken Type acetaminophen 325 mg tablet 650 mg PO QID PRN Pain 10/27/19 02/14/23 10/27/19 History (Tylenol) aspirin 81 mg tablet,delayed 81 mg PO DAILY 10/27/19 02/14/23 10/27/19 History release (Aspir-) cetirizine 10 mg tablet 10 mg PO DAILY PRN Allergic 10/27/19 02/14/23 10/27/19 History Reaction cholecalciferol (vitamin D3) 50 2,000 unit PO DAILY 10/27/19 02/14/23 10/27/19 History mcg (2,000 unit) tablet cyanocobalamin (vitamin B-12) 1,000 mcg PO DAILY 10/27/19 02/14/23 10/27/19 History 1,000 mcg capsule niacin 500 mg tablet 500 mg PO DAILY 10/27/19 02/14/23 10/27/19 History ascorbate calcium (vitamin C) 500 500 mg PO BID 04/10/21 02/14/23 Unknown History mg tablet zolpidem 5 mg tablet (Ambien) 5 mg PO 04/10/21 02/14/23 Unknown History warfarin 4 mg tablet 4 mg PO DAILY 3 months #90 tabs 08/24/21 06/15/23 Unknown Rx oxybutynin chloride 5 mg tablet 5 mg PO DAILY 07/26/22 02/14/23 Unknown History sotalol 80 mg tablet 40 mg PO BID #90 tabs 08/26/22 02/14/23 Unknown Rx amlodipine 10 mg tablet See Rx Instructions .Route 09/29/22 02/14/23 Unknown Rx .COMPLEX #90 tabs levothyroxine 50 mcg tablet 50 mcg PO DAILY #90 tabs 01/10/23 02/14/23 Unknown Rx citalopram 20 mg tablet See Rx Instructions .Route 04/01/23 Unknown Rx .COMPLEX #30 tabs methenamine hippurate 1 gram tablet 1 g PO BID #60 tabs 04/21/23 Unknown Rx nitrofurantoin 100 mg PO Q12H 5 days #10 caps 04/28/23 Unknown Rx monohydrate/macrocrystals 100 mg capsule (Macrobid) pantoprazole 40 mg tablet,delayed 40 mg PO DAILY #90 tabs 04/29/23 Unknown Rx release warfarin 3 mg tablet 3 mg PO DIRECTED #90 tabs 06/10/23 06/15/23 Unknown Rx Allergies Allergy/AdvReac Type Severity Reaction Status Date / Time ESTHER Inhibitors Allergy Severe Unknown Verified 06/20/23 19:27 amlodipine [From [facility]] Allergy Severe Unknown Verified 06/20/23 19:27 Jebibsm-ENT-EzF Reductase Allergy Severe Unknown Verified 06/20/23 19:27 Inhibitor codeine Allergy ADR-Vomitin Verified 06/20/23 19:27 g morphine Allergy ADR-Vomitin Verified 06/20/23 19:27 g HCTZ Allergy Severe Unknown Uncoded 06/20/23 19:27 PFSH Acute PFSH: Medical History Abdominal aortic aneurysm (AAA) Anticoagulant long-term use ASHD (arteriosclerotic heart disease) Atrial fibrillation CVA (cerebral vascular accident) Cystitis cystica Essential hypertension Fibromyalgia Hyperlipidemia IBS (irritable bowel syndrome) Leg pain PAD (peripheral artery disease) Recurrent UTI Seizure disorder Tobacco abuse Urgency incontinence Vaginal atrophy Surgical History H/O: hysterectomy S/P angioplasty with stent S/P cataract extraction S/P gold S/P hip replacement S/P knee replacement Family History Mother , at age 47 CAD (coronary artery disease) Father , in his 70's Cancer Social History Smoking and tobacco status: former smoker Alcohol intake: never Marital status: Current occupational status: retired Vitals/I&O/Wt Last Vital Signs Temp 103.0 F H 06/20/23 19:14 Pulse 86 06/20/23 19:14 Resp 18 06/20/23 22:23 BP 126/78 06/20/23 22:23 Pulse Ox 90 06/20/23 22:23 O2 Del Method Room Air 06/20/23 23:00 06/20/23 06/20/23 06/21/23 14:59 22:59 06:59 Intake Total 100 / 100 Balance 100 / 100 Weight last 48 hrs Weight 71.214 kg Physical Exam Narrative: She is alert awake oriented x3 cooperative not in acute distress Chest-clear to auscultation bilaterally Cardiovascular-heart sounds normal Abdomen-soft nontender nondistended normal bowel sounds Extremities-left ankle 1 to 2 cm laceration seen. Surrounding erythema warmth and swelling present. Normal peripheral pulses. Superficial varicose veins present. Data 06/20/23 19:00 06/20/23 19:00 Micro: Microbiology 06/20/23 20:04 Blood Culture - Preliminary Blood SPECIMEN COLLECTED 06/20/23 19:46 Blood Culture - Preliminary Blood SPECIMEN COLLECTED Xray Ortho: Radiologist's impression: IMPRESSION: 1. No fracture or acute osseous abnormality.? 2. Mild soft tissue swelling or edema, without identification soft tissue gas or radiopaque soft tissue foreign body density.? ? CXR: Radiologist's impression: IMPRESSION: 1. Borderline prominent cardiac size. 2. Bilateral mild interstitial prominence, more prominent about the lower lungs.? This could represent chronic bilateral interstitial lung changes versus acute mild bilateral interstitial pneumonitis.? No consolidation or effusion. EKG 1: My Interpretation: Atrial fibrillation with controlled ventricular rate No acute ST-T changes A&P Assessment and plan (1) Cat bite of ankle: Left ankle swelling erythema and warmth likely secondary to cellulitis secondary to cat bite and found to have leukocytosis. Will give IV ceftriaxone 1 g daily IV fluids normal saline at 60 mm/h P.o. Tylenol 650 mg every 6 hours as needed for fever Recheck labs in a.m. Qualifiers: Encounter type: initial encounter Laterality: left Qualified Code(s): S91.052A - Open bite, left ankle, initial encounter; W55.01XA - Bitten by cat, initial encounter (2) Fever: Fever secondary to cellulitis and UTI Qualifiers: Fever type: due to other condition Qualified Code(s): R50.81 - Fever presenting with conditions classified elsewhere (3) Urinary tract infection: Given history of recurrent UTI and leukocytosis, will cover with IV ceftriaxone 1 g daily. Continue IV fluids Qualifiers: Urinary tract infection type: acute pyelonephritis Qualified Code(s): N10 - Acute pyelonephritis Plan Continue home medications Cardiac diet Ambulate as needed Full code for now Attestations Medical Necessity Statement*: She needs to be admitted for IV fluids and IV antibiotics for left ankle cellulitis and UTI hence needs more than 2 days of inpatient hospitalization Time Spent in Patient Care: 25 minutes Coding Level of Care Code Acute Code for [facility] Diagnoses Cat bite of ankle S91.052A; W55.01XA Encounter type: initial encounter Laterality: left Fever R50.81 Fever type: due to other condition Urinary tract infection N10 Urinary tract infection type: acute pyelonephritis Time Spent (min) 25
[2023-06-21] VITALS (10 sets, daily range): BP systolic 115–184; BP diastolic 61–84; PULSE 78–106; RESP 15–42; TEMP 36.8–38; O2SAT 80–96
[2023-06-21] MEDS: sodium chloride 0.9% 1,000 ML 75 ML IV (00:02)
[2023-06-21] MEDS: pantoprazole 40 mg SDV IVP ×2 (00:06→23:05)
[2023-06-21] MEDS: cefTRIAXone 1,000 MG in sodium chloride 0.9% (plus) 50 ML 100 MG IV (00:23)
[2023-06-21] MEDS: acetaminophen 325 mg Tablet 650 MG PO (00:23)
[2023-06-21 05:30] LABS: Basophils # 0.1 10^3/uL (0.0-0.1); Basophils % 0.4 %; Eosinophils # 0.1 10^3/uL (0.0-0.8); Eosinophils % 0.2 %; Hematocrit 35.8 % (36-47); Lymphocytes # 2.7 10^3/uL (0.8-4.8); Lymphocytes % 10.5 %; Mean Corpuscular HGB Conc 31.8 g/dL (30-55); Mean Corpuscular Hemoglobin 27.3 pg (27-33); Mean Corpuscular Volume 85.6 fl (85-98); Mean Platelet Volume 9.5 fL (7.4-10.4); Monocytes # 2.4 10^3/uL (0.2-0.9); Monocytes % 9.3 %; Neutrophils # 20.12 10^3/uL (1.8-7.7); Neutrophils % 78.8 %; Nucleated Red Blood Cells % 0 %; Platelet Count 327 10^3/cmm (157-399); Red Blood Count 4.18 10^6/uL (3.85-5.65); Red Cell Distribution Width 15.1 % (12.1-15.1); White Blood Count 25.53 10^3/uL (3.29-11.43)
[2023-06-21 05:41] LABS: INR 1.79 (0.8-1.2)
[2023-06-21 05:52] LABS: Alanine Aminotransferase 8 U/L (0-33); Albumin Level 3.7 g/dL (3.5-5.2); Alkaline Phosphatase 82 U/L (35-105); Anion Gap 11.8 (5-19); Aspartate Amino Transferase 12 U/L (0-32); Blood Urea Nitrogen 18 mg/dL (8-23); Calcium 8.4 mg/dL (8.5-10.5); Carbon Dioxide 27 mmol/L (22-29); Chloride 103 mmol/L (98-107); Globulin 2.2 g/dL (1.3-4.6); Glucose 120 mg/dL (65-115); Osmolality Calculated 289 mOsm/kg (285-295); Potassium 3.8 mmol/L (3.5-5.1); Sodium 138 mmol/L (136-145); Total Bilirubin 0.5 mg/dL (0.15-1.2); Total Protein 5.9 g/dL (6.6-8.7)
--- NOTE | 2023-06-21 08:25 | USCV_ITS ---
Janae Kern Age: 82 Gender: F : 1940 Exam Date: 06/21/2023 09:58 Ordering Phys: Vaishnavi Navarro MD Technologist: Teddy Phan Exam Location: [facility] Indication: cat scratch fever BP: 134 / 76 HR: 82 Rhythm: Atrial fibrillation Technical Quality: Suboptimal MEASUREMENTS (Male / Female) Normal Values 2D ECHO LV Diastolic Diameter PLAX 4.5 cm 4.2 - 5.9 / 3.9 - 5.3 cm LV Systolic Diameter PLAX 2.5 cm IVS Diastolic Thickness 1.0 cm 0.6 - 1.0 / 0.6 - 0.9 cm IVS Systolic Thickness 1.6 cm LVPW Diastolic Thickness 1.3 cm 0.6 - 1.0 / 0.6 - 0.9 cm LVPW Systolic Thickness 1.5 cm LVOT Diameter 2.1 cm LV Ejection Fraction 2D Teich 76.8 % LV Ejection Fraction MOD 2C 67.1 % LV Ejection Fraction 2C AL 66.2 % LA Diameter 4.6 cm IVC Diameter 1.3 cm M-MODE Aortic Annulus Diameter 3.2 cm LA Ao Ratio MM 1.6 MV E Point Septal Separation 1.1 cm DOPPLER AV Peak Velocity 190.0 cm/s LVOT Peak Velocity 109.0 cm/s AV Area Cont Eq vti 2.1 cm squared AV Area Cont Eq pk 2.0 cm squared MV Area PHT 4.8 cm squared Mitral E to A Ratio 1.5 MV E' Velocity 77.5 cm/s Mitral E to MV E' Ratio 10.9 Mitral E to LV E' Lateral Ratio 8.1 Mitral E to LV E' Septal Ratio 16.9 TR Peak Velocity 309.7 cm/s TR Peak Gradient 38.4 mmHg TV Peak E Velocity 127.0 cm/s Right Atrial Pressure 3.0 mmHg Pulmonary Artery Systolic Pressu 41.4 mmHg RV Acceleration Time 0.1 s FINDINGS Left Ventricle Normal left ventricular size, systolic function and wall thickness, with no regional wall motion abnormalities. Rhythm precludes evaluation of diastolic function. Left ventricular ejection fraction is estimated at 65 %. Right Ventricle Normal right ventricular size and systolic function. Mild pulmonary hypertension, RVSP 41.4 mmHg. Right Atrium The right atrium is normal in size. Left Atrium Mildly increased left atrial size. Mitral Valve Structurally normal mitral valve. Mild mitral valve regurgitation. Aortic Valve Aortic valve not well visualized. Structurally normal trileaflet aortic valve. No aortic valve stenosis. Trace aortic valve regurgitation. Tricuspid Valve Structurally normal tricuspid valve. Anie-ux-fcmccpft tricuspid valve regurgitation. Pulmonic Valve Pulmonic valve not well visualized. Pericardium Normal pericardium without effusion. Aorta Normal ascending aorta dimension. IVC The inferior vena cava appears normal. CONCLUSIONS Normal left ventricular size, systolic function and wall thickness, with no regional wall motion abnormalities. Rhythm precludes evaluation of diastolic function. Left ventricular ejection fraction is estimated at 65 %. Mildly increased left atrial size. Structurally normal mitral valve. Mild mitral valve regurgitation. Aortic valve not well visualized. Structurally normal trileaflet aortic valve. No aortic valve stenosis. Trace aortic valve regurgitation. The previous study was done only 2 months ago. There has been no change. Dr. Koffi Powell MD (Electronically Signed) Final Date: 21 June 2023 18:11 S
--- NOTE | 2023-06-21 08:28 | PC.PHAR ---
pt states she takes care of her own medications-pt states she still takes ambien 5mg hs prn ext doesnt show when last filled rx shows written 04/10/21-
[2023-06-21] MEDS: doxycycline 100 MG in sodium chloride 0.9% (plus) 100 ML IV ×2 (10:22→20:20)
[2023-06-21] MEDS: lactated ringers 1,000 ML 999 ML IV ×2 (11:28→12:45)
--- NOTE | 2023-06-21 12:15 | P.PN_ITS ---
Subjective Subjective: Patient meets SIRS criteria, sepsis criteria met I have given her 2 L bolus Patient is endorsing feeling slightly better however endorsing pain in her left ankle Febrile episodes Lactic acid is normal blood cultures taken in the ER I have added doxycycline Vitals/I&O/Wt Last Vital Signs Temp 98.4 F 06/21/23 07:32 Pulse 84 06/21/23 09:00 Resp 16 06/21/23 07:32 BP 129/69 06/21/23 07:32 Pulse Ox 90 06/21/23 09:00 O2 Del Method Room Air 06/20/23 23:00 06/20/23 06/21/23 06/21/23 22:59 06:59 14:59 Intake Total 100 / 100 170 / 270 847.5 / 847.5 Balance 100 / 100 170 / 270 847.5 / 847.5 Weight last 48 hrs Weight 71.214 kg Physical Exam Narrative: Left ankle with good granulation tissue no active signs of purulence Hyperemia consistent with cellulitis Wound seems to be healing well with a scab Awake and alert Nonfocal neuro exam no signs of confusion S1, S2 Currently on room air Pleasant and cooperative Data 06/21/23 05:07 06/21/23 05:07 Micro: Microbiology 06/20/23 20:04 Blood Culture - Preliminary Blood SPECIMEN COLLECTED 06/20/23 19:46 Blood Culture - Preliminary Blood SPECIMEN COLLECTED A&P Assessment and plan (1) Cat bite of ankle: Qualifiers: Encounter type: initial encounter Laterality: left Qualified Code(s): S91.052A - Open bite, left ankle, initial encounter; W55.01XA - Bitten by cat, initial encounter (2) Fever: Qualifiers: Fever type: due to other condition Qualified Code(s): R50.81 - Fever presenting with conditions classified elsewhere (3) Urinary tract infection: Qualifiers: Urinary tract infection type: acute pyelonephritis Qualified Code(s): N10 - Acute pyelonephritis (4) Sepsis: (5) Recurrent UTI: (6) Anticoagulant long-term use: (7) Atrial fibrillation: Qualifiers: Atrial fibrillation type: paroxysmal Qualified Code(s): I48.0 - Paroxysmal atrial fibrillation Plan Sepsis related to UTI Cat bite Patient is currently on doxycycline and ceftriaxone Requested blood cultures and echo Rule out endocarditis Sepsis criteria met with fever, tachycardia, leukocytosis, creatinine 1.0 Given septic bolus, cultures taken We will follow-up with urine cultures Recurrent UTIs: Previous urine culture positive for Enterobacter and E. coli, pansensitive. Patient has follow-up with urologist in the past She patient will need to stay in the hospital until we know her final culture report Echo requested Continue cardiac diet Patient has history of A-fib no RVR Subtherapeutic INR, I would continue same dose of Coumadin for 1 more day and check INR tomorrow Full code DVT prophylaxis will be added by myself Attestations Medical Necessity Statement*: Continue medical management Coding Level of Care Code 84973 Moderate MDM includes number and complexity of problems actively addressed during encounter, amount and/or complexity of data reviewed/ordered and described risk of complication, morbidity or mortality of management as do cumented Diagnoses Cat bite of ankle S91.052A; W55.01XA Encounter type: initial encounter Laterality: left Fever R50.81 Fever type: due to other condition Urinary tract infection N10 Urinary tract infection type: acute pyelonephritis Sepsis A41.9 Recurrent UTI N39.0 Anticoagulant long-term use Z79.01 Atrial fibrillation I48.0 Atrial fibrillation type: paroxysmal
[2023-06-21] MEDS: enoxaparin 40 mg/0.4 mL Syringe SUBCUT (12:44)
[2023-06-21] MEDS: ketorolac 30 mg/mL INJ 15 MG IVP (13:46)
[2023-06-21] MEDS: FUROsemide 10 mg/mL SDV 4mL 40 MG IVP ×2 (21:21→21:28)
[2023-06-21] MEDS: ipratropium-albuterol 3 mL Neb INHALATION (21:23)
--- NOTE | 2023-06-21 22:08 | PM.CCNAC ---
Critical Care Event Note The high probability of a clinically significant, sudden or life threatening deterioration of the patient's [] system(s) required my full and direct attention, intervention and personal management. The critical care time is as shown. This time is in addition to time spent performing any reported procedures but includes the following: [x] Data and vital sign review and interpretation [x] Patient assessment, examination and intervention [x] Documentation [x] Medication orders and management Critical Care Time Code activated: No Critical Care Time (min): 40 Additional information about critical care time: Patient was found to have severe shortness of breath and difficulty breathing. As per the nurse she was found to be cyanotic with hypoxia of 84% on room air. Lung exam showed bilateral coarse rhonchi and wheezing. Likely secondary to fluid overload. She was put on 15 L oxygen back saturating at 88%. Hence started on BiPAP with settings of 16 /6/30 percent oxygen. She was further found to be tachypneic with respiratory rate of 35-40. She was given 2 doses of IV Lasix 40 mg stat, DuoNeb x1, Nolasco catheter insertion done. Will do stat ABG to assess the respiratory status. Discontinued IV fluids. Will monitor for now on BiPAP. She is alert awake and oriented x3. Coding Level of Care Code Critical Care Time Spent (min) 40
--- NOTE | 2023-06-21 22:15 | XRR_ITS ---
PROCEDURE INFORMATION: Exam: XR Chest Exam date and time: 06/21/2023 10:28 PM Age: 82 years old Clinical indication: Shortness of breath; Additional info: Shortness of breath and hypoxia TECHNIQUE: Imaging protocol: Radiologic exam of the chest. Views: 1 view. COMPARISON: CR XR chest 1V portable [id number] 06/20/2023 7:26 PM FINDINGS: Lungs: Emphysema. Interstitial opacities in both lung bases and right mid lung. No consolidation. Pleural spaces: Unremarkable. No pleural effusion. No pneumothorax. Heart/Mediastinum: Mild cardiomegaly. Bones/joints: Unremarkable. XR/XR chest 1V portable [id number] IMPRESSION: Cardiomegaly with probable mild interstitial pulmonary edema.
[2023-06-21 22:32] LABS: Add Urine Microscopic? YES; Bilirubin Urine Neg (Negative); Blood Urine Neg (Negative); Glucose Urine UA Norm (Normal); Ketones Urine Negative (Negative); Leukocyte Esterase Urine Trace (Negative); Nitrate Urine Negative (Negative); Protein Urine Neg (Negative); Urine Appearance Clear (CLEAR); Urine Color Colorless (Yellow); Urobilinogen Urine Neg (Negative); pH Urine 5 (5-7)
[2023-06-21 22:33] LABS: Add Urine Culture? No; Bacteria Urine TRACE /hpf; Squamous Epithelial Cell Urine 0-4 /hpf (0-5)
[2023-06-21 22:52] LABS: ABG PCO2 43.5 mmHg (35-45); ABG PH Result 7.39 (7.35-7.45); Alveolar-Arterial Oxygen Gradi 12.2 mmHg (5-10); Arterial Blood Gas Hematocrit 36.7 % (37-47); Base Excess ABG 1.1 mmol/L (-2.0-2.0); Blood Gas Allen Test Pos; Blood Gas Sample Site Radial, right; Blood Gas Sample Type Arterial; HCO3 ABG 26.4 mmol/L (22-26); HGB O2 Sat 92.4 % (95-100); Ionized Calcium Level - ABG 1.2 mmol/L (1.1-1.4); Methemoglobin 0.3 % (0.4-1.5); Oxygen Device BIPAP; Oxygen Saturation ABG 94.6; PO2 ABG 65.6 mmHg (80.0-100.0); Potassium Level - ABG 3.4 mmol/L (3.5-5.0)
--- NOTE | 2023-06-21 23:05 | PC.NURSE ---
at 1919 pt A&O x4, denied SOB, requested to remove O2 at that time, no resp distress noted, pt able to assist with rolling and lifting self up in bed. @2099 VENEER PATCHER answered call light and pt c/o SOB, had rapid resp, 02 sat 80 in room air, loud crackles noted, 02 placed back on pt and changed out to non-rebreather mask at 10L, O2 sat increasing between 92-94 pt color dusky, charge nurse called respiratory therapy and hospitalist, BP manually was 184/82, pt given 40 mg IV Lasix twice with approx 30 minutes in between doses, BP prior to second dose was 178/78, CPAP placed and duoneb given, continuous pu;se sox in place, avalos inserted, order placed for repeat UA, ABG, and another duoned 2 hours after initial dose. PRN order for duoneb in place, respiratory distress resolving, by 1944 pt color back to pink, pt awake and able to ask questions, lung sounds remains coarse but less. @2029 bp is 158/66, coarseness resolved, continue to have expiratory wheezes, pt wanting CPAP off, nurse explained to pt that pt currently needs CPAP for a little while longer reminded of what has occurred and pt agreed to keep CPAP on.
[2023-06-22] VITALS (11 sets, daily range): BP systolic 136–154; BP diastolic 64–83; PULSE 75–108; RESP 13–23; TEMP 36.4–37.1; O2SAT 92–98
[2023-06-22] MEDS: cefTRIAXone 2,000 MG in sodium chloride 0.9% (plus) 50 ML 100 MG IV (00:27)
[2023-06-22 04:44] LABS: Basophils # 0.1 10^3/uL (0.0-0.1); Basophils % 0.6 %; Eosinophils % 0.2 %; Hematocrit 34.9 % (36-47); Lymphocytes # 2.3 10^3/uL (0.8-4.8); Lymphocytes % 17.3 %; Mean Corpuscular HGB Conc 32.1 g/dL (30-55); Mean Corpuscular Hemoglobin 27.7 pg (27-33); Mean Corpuscular Volume 86.2 fl (85-98); Mean Platelet Volume 9.4 fL (7.4-10.4); Monocytes # 1.1 10^3/uL (0.2-0.9); Monocytes % 7.9 %; Neutrophils # 9.87 10^3/uL (1.8-7.7); Neutrophils % 73.6 %; Nucleated Red Blood Cells % 0 %; Platelet Count 295 10^3/cmm (157-399); Red Blood Count 4.05 10^6/uL (3.85-5.65); Red Cell Distribution Width 15.1 % (12.1-15.1); White Blood Count 13.42 10^3/uL (3.29-11.43)
[2023-06-22 05:11] LABS: Anion Gap 12.6 (5-19); Blood Urea Nitrogen 13 mg/dL (8-23); Calcium 8.7 mg/dL (8.5-10.5); Carbon Dioxide 30 mmol/L (22-29); Chloride 101 mmol/L (98-107); Glucose 120 mg/dL (65-115); Osmolality Calculated 291 mOsm/kg (285-295); Potassium 3.6 mmol/L (3.5-5.1); Sodium 140 mmol/L (136-145)
[2023-06-22] MEDS: doxycycline 100 MG in sodium chloride 0.9% (plus) 100 ML IV ×2 (08:05→20:31)
[2023-06-22] MEDS: FUROsemide 10 mg/mL SDV 2mL 20 MG IVP (09:41)
--- NOTE | 2023-06-22 10:40 | PM.PN ---
Subjective Subjective: Overnight events noted I will give her extra dose of Lasix Currently patient is on 2 L nasal cannula Off BiPAP Patient endorsing feeling better this morning Afebrile Vitals/I&O/Wt Last Vital Signs Temp 97.6 F 06/22/23 07:26 Pulse 96 06/22/23 09:51 Resp 17 06/22/23 09:51 BP 136/71 06/22/23 07:26 Pulse Ox 96 06/22/23 09:51 O2 Del Method Nasal Cannula 06/22/23 09:51 O2 Flow Rate 3 06/22/23 09:51 FiO2 30 06/22/23 01:42 06/21/23 06/22/23 06/22/23 22:59 06:59 14:59 Intake Total 340 / 3307.5 50 / 3357.5 340 / 340 Output Total 1900 / 1900 Balance 340 / 3307.5 -1850 / 1457.5 340 / 340 Weight last 48 hrs Weight 71.214 kg Physical Exam Narrative: Patient has mild crackles GCS 15 Nonfocal neuro exam Currently on nasal cannula 2 L Abdomen soft S1, S2 Left ankle redness and around cat bite is improving GCS 15 Pleasant and cooperative No audible stridor or wheezing Urinary Catheter Management: Nolasco: Cath Placed During This Visit: yes Reason for Continuing Indwelling Catheter: Accurate Measurement of Urinary Output in Critically Ill Patients Urinary Catheter Date of Insertion: 06/22/23 Urinary Catheter Time of Insertion: 21:30 Data 06/22/23 04:23 06/22/23 04:23 Micro: Microbiology 06/20/23 19:48 Urine Culture - Preliminary Urine,Clean Catch Gram Negative Rods 06/20/23 20:04 Blood Culture - Preliminary Blood NEGATIVE TO DATE 06/20/23 19:46 Blood Culture - Preliminary Blood NEGATIVE TO DATE A&P Assessment and plan (1) Sepsis: (2) Cat bite of ankle: Qualifiers: Encounter type: initial encounter Laterality: left Qualified Code(s): S91.052A - Open bite, left ankle, initial encounter; W55.01XA - Bitten by cat, initial encounter (3) Fever: Qualifiers: Fever type: due to other condition Qualified Code(s): R50.81 - Fever presenting with conditions classified elsewhere (4) Urinary tract infection: Qualifiers: Urinary tract infection type: acute pyelonephritis Qualified Code(s): N10 - Acute pyelonephritis (5) Recurrent UTI: (6) Atrial fibrillation: Qualifiers: Atrial fibrillation type: paroxysmal Qualified Code(s): I48.0 - Paroxysmal atrial fibrillation Plan Sepsis related to UTI: Resolved Cat bite: Wound seems to be healing well no signs of worsening No bacteremia no signs of endocarditis With septic bolus patient became fluid overloaded required BiPAP and diuresis Hypokalemia: Replenish potassium I would like to watch patient on Tuesday Wean oxygen to room air Give another dose of Lasix Possible discharge tomorrow Cardiac diet Full code Check INR tomorrow she was subtherapeutic, A-fib without RVR continue sotalol and Coumadin Attestations Medical Necessity Statement*: Discharge tomorrow Diagnoses Sepsis A41.9 Cat bite of ankle S91.052A; W55.01XA Encounter type: initial encounter Laterality: left Fever R50.81 Fever type: due to other condition Urinary tract infection N10 Urinary tract infection type: acute pyelonephritis Recurrent UTI N39.0 Atrial fibrillation I48.0 Atrial fibrillation type: paroxysmal
[2023-06-22] MEDS: warfarin 3 mg Tablet PO (13:38)
[2023-06-22] MEDS: enoxaparin 40 mg/0.4 mL Syringe SUBCUT (13:38)
[2023-06-22] MEDS: sotalol 80 mg Tablet 40 MG PO (17:16)
[2023-06-22] MEDS: aspirin 81 mg EC Tablet PO (20:31)
[2023-06-22] MEDS: pantoprazole 40 mg SDV IVP (23:28)
[2023-06-23] VITALS (9 sets, daily range): BP systolic 126–146; BP diastolic 45–70; PULSE 75–108; RESP 13–16; TEMP 36.7–36.9; O2SAT 90–96
[2023-06-23] MEDS: cefTRIAXone 2,000 MG in sodium chloride 0.9% (plus) 50 ML 100 MG IV (00:14)
[2023-06-23 05:10] LABS: Basophils # 0.1 10^3/uL (0.0-0.1); Basophils % 0.8 %; Eosinophils # 0.2 10^3/uL (0.0-0.8); Hematocrit 35.5 % (36-47); Lymphocytes # 2.3 10^3/uL (0.8-4.8); Lymphocytes % 23.3 %; Mean Corpuscular HGB Conc 31.8 g/dL (30-55); Mean Corpuscular Hemoglobin 27.3 pg (27-33); Mean Corpuscular Volume 85.7 fl (85-98); Mean Platelet Volume 9.5 fL (7.4-10.4); Monocytes # 1.1 10^3/uL (0.2-0.9); Monocytes % 11.7 %; Neutrophils # 5.95 10^3/uL (1.8-7.7); Neutrophils % 61.8 %; Nucleated Red Blood Cells % 0 %; Platelet Count 303 10^3/cmm (157-399); Red Blood Count 4.14 10^6/uL (3.85-5.65); Red Cell Distribution Width 14.6 % (12.1-15.1); White Blood Count 9.64 10^3/uL (3.29-11.43)
[2023-06-23] MEDS: amlodipine 10 mg Tablet PO (05:41)
[2023-06-23] MEDS: levothyroxine 50 mcg Tablet PO (05:41)
[2023-06-23 05:44] LABS: Anion Gap 12.3 (5-19); Blood Urea Nitrogen 13 mg/dL (8-23); Calcium 8.8 mg/dL (8.5-10.5); Carbon Dioxide 32 mmol/L (22-29); Chloride 98 mmol/L (98-107); Creatinine Clr Calc Pharmacy 51.8373; Glucose 94 mg/dL (65-115); Osmolality Calculated 288 mOsm/kg (285-295); Potassium 3.3 mmol/L (3.5-5.1); Sodium 139 mmol/L (136-145)
--- NOTE | 2023-06-23 08:10 | XR_ITS ---
WS: [id number] Portable AP upright chest, 06/23/2023 Clinical Data: oedema Comparison: Portable chest, 06/21/2023 Findings: No nodules, masses or effusions are seen. The heart is enlarged. The pulmonary vascularity is not increased. No pneumonia or pneumothorax is seen. The aortic arch and descending thoracic aorta show tortuosity. The diaphragms are flattened. Monitor leads are on the chest wall. Impression: 1. Cardiomegaly and atherosclerosis. 2. Hyperinflation.
[2023-06-23] MEDS: doxycycline 100 MG in sodium chloride 0.9% (plus) 100 ML IV (09:47)
[2023-06-23] MEDS: sotalol 80 mg Tablet 40 MG PO (09:49)
--- NOTE | 2023-06-23 10:59 | P.DS_ITS ---
Discharge Providers Date of Admission: 06/20/23 21:48 Date of Discharge: June 23, 2023 Attending Provider at Admission: Kadi Barrett MD Attending Provider at Discharge: Vaishnavi Navarro MD Primary Care Provider: Abelardo Gannon DO Diagnoses at Discharge Discharge Diagnosis (1) Sepsis: Status: Acute (2) Cat bite of ankle: Status: Acute Qualifiers: Encounter type: initial encounter Laterality: left Qualified Code(s): S91.052A - Open bite, left ankle, initial encounter; W55.01XA - Bitten by cat, initial encounter (3) Fever: Status: Acute Qualifiers: Fever type: due to other condition Qualified Code(s): R50.81 - Fever presenting with conditions classified elsewhere (4) Urinary tract infection: Status: Acute Qualifiers: Urinary tract infection type: acute pyelonephritis Qualified Code(s): N10 - Acute pyelonephritis (5) Recurrent UTI: Status: Acute (6) Atrial fibrillation: Status: Acute Qualifiers: Atrial fibrillation type: paroxysmal Qualified Code(s): I48.0 - Paroxysmal atrial fibrillation Reason for Visit Reason for Visit: shoulder/back pain Hospital Course Hospital Course 82-year female who was admitted for management and evaluation of sepsis related to UTI, she also suffering from a cat bite on her left ankle which seems to be getting better, her febrile episodes improved with use of doxycycline and ceftriaxone, cultures remain negative, she has history of recurrent UTI, has seen Dr. Phoenix in the past, patient developed pulm edema with septic bolus and then she required BiPAP and significant diuretic doses at the time of disch arge she is on room air, she was diuresed aggressively, we will do home oxygen evaluation before discharge previous urine culture showed E. coli and Enterobacter, pansensitive, I will add levofloxacin 10-day regimen, I will give her referral to see urologist at [facility] blood cultures negative I will also give her Lasix for a week because of mild crackles at base of her lungs Physical Exam Narrative: Mild crackles at base of lungs Currently on room air S1, S2 GCS 15 Left ankle wound healing well Pleasant and cooperative Abdomen soft Urinary Catheter Management: Nolasco: Cath Placed During This Visit: yes Reason for Continuing Indwelling Catheter: Other Urinary Catheter Date of Insertion: 06/22/23 Urinary Catheter Time of Insertion: 21:30 Discharge Data Studies Completed and Pending Completed Studies During Hospitalization Category Date Time Status XR ankle LT min 3V* [id number] Stat Exams 06/20/23 19:33 Completed XR chest 1V portable [id number] Routine Exams 06/23/23 08:10 Completed XR chest 1V portable [id number] Stat Exams 06/21/23 22:15 Completed XR chest 1V portable [id number] Urgent Exams 06/20/23 19:18 Completed CV. echo complete* [id number] Routine Ultrasound 06/21/23 08:25 Completed Pending at discharge Category Date Time Status Blood Culture Stat Lab 06/20/23 20:04 Results Urine Culture Stat Lab 06/20/23 19:48 Results Radiology Impressions Ankle X-Ray 06/20/23 19:33 IMPRESSION: 1. No fracture or acute osseous abnormality. 2. Mild soft tissue swelling or edema, without identification soft tissue gas or radiopaque soft tissue foreign body density. Laboratory Results WBC 9.64 10^3/uL (3.29-11.43) 06/23/23 04:30 RBC 4.14 10^6/uL (3.85-5.65) 06/23/23 04:30 Hgb 11.30 g/dL (11.27-16.99) 06/23/23 04:30 Hct 35.5 % (36-47) L 06/23/23 04:30 MCV 85.7 fl (85-98) 06/23/23 04:30 MCH 27.3 pg (27-33) 06/23/23 04:30 MCHC 31.8 g/dL (30-55) 06/23/23 04:30 RDW 14.6 % (12.1-15.1) 06/23/23 04:30 Plt Count 303 10^3/cmm (157-399) 06/23/23 04:30 MPV 9.5 fL (7.4-10.4) 06/23/23 04:30 Neut % (Auto) 61.8 % 06/23/23 04:30 Lymph % (Auto) 23.3 % 06/23/23 04:30 [place] % (Auto) 11.7 % 06/23/23 04:30 Eos % (Auto) 2.0 % 06/23/23 04:30 Baso % (Auto) 0.8 % 06/23/23 04:30 Neut # (Auto) 5.95 10^3/uL (1.8-7.7) 06/23/23 04:30 Lymph # (Auto) 2.3 10^3/uL (0.8-4.8) 06/23/23 04:30 [place] # (Auto) 1.1 10^3/uL (0.2-0.9) H 06/23/23 04:30 Eos # (Auto) 0.2 10^3/uL (0.0-0.8) 06/23/23 04:30 Baso # (Auto) 0.1 10^3/uL (0.0-0.1) 06/23/23 04:30 Nucleated RBC % (auto) 0 % 06/23/23 04:30 Nucleated RBCs # 0.0 /100WBC 06/23/23 04:30 PT 21.50 SECONDS (12.1-14.9) H 06/21/23 05:07 INR 1.79 (0.8-1.2) H 06/21/23 05:07 Specimen Type Arterial 06/21/23 22:16 Sample Site Radial, right 06/21/23 22:16 ABG pH 7.39 (7.35-7.45) 06/21/23 22:16 ABG pCO2 43.5 mmHg (35-45) 06/21/23 22:16 ABG pO2 65.6 mmHg (80.0-100.0) L 06/21/23 22:16 ABG HCO3 26.4 mmol/L (22-26) H 06/21/23 22:16 ABG O2 Saturation 94.6 06/21/23 22:16 ABG Base Excess 1.1 mmol/L (-2.0-2.0) 06/21/23 22:16 Jc Test Pos 06/21/23 22:16 A-a O2 Gradient 12.2 mmHg (5-10) H 06/21/23 22:16 Hematocrit 36.7 % (37-47) L 06/21/23 22:16 Hgb O2 Saturation 92.4 % (95-100) L 06/21/23 22:16 Carboxyhemoglobin 2.0 %THgb (0.4-20.1) 06/21/23 22:16 Methemoglobin 0.3 % (0.4-1.5) L 06/21/23 22:16 Total Hemoglobin 12.0 g/dL (12-16) 06/21/23 22:16 Sodium 138.0 mmol/L (131-143) 06/21/23 22:16 Potassium 3.4 mmol/L (3.5-5.0) L 06/21/23 22:16 Glucose 132.0 mg/dL (70-115) H 06/21/23 22:16 Ionized Calcium 1.2 mmol/L (1.1-1.4) 06/21/23 22:16 O2 Delivery Device Bipap 06/21/23 22:16 FiO2 30.0 % 06/21/23 22:16 Director Of Solutions Architecture ID [email or web address] 06/21/23 22:16 Sodium 139 mmol/L (136-145) 06/23/23 04:30 Potassium 3.3 mmol/L (3.5-5.1) L 06/23/23 04:30 Chloride 98 mmol/L (98-107) 06/23/23 04:30 Carbon Dioxide 32 mmol/L (22-29) H 06/23/23 04:30 Anion Gap 12.3 (5-19) 06/23/23 04:30 BUN 13 mg/dL (8-23) 06/23/23 04:30 Creatinine 0.8 mg/dL (0.5-0.9) 06/23/23 04:30 GFR Calculation Not Reportable 06/23/23 04:30 Glucose 94 mg/dL (65-115) 06/23/23 04:30 Calculated Osmolality 288 mOsm/kg (285-295) 06/23/23 04:30 Lactic Acid 2.0 mmol/L (0.5-2.2) 06/20/23 19:46 Calcium 8.8 mg/dL (8.5-10.5) 06/23/23 04:30 Total Bilirubin 0.5 mg/dL (0.15-1.2) 06/21/23 05:07 AST 12 U/L (0-32) 06/21/23 05:07 ALT 8 U/L (0-33) 06/21/23 05:07 Alkaline Phosphatase 82 U/L (35-105) 06/21/23 05:07 Troponin T Baseline 15 ng/L (0-10) H 06/20/23 19:00 Troponin T 120 Minute 16.06 ng/L (0-10) H 06/20/23 21:45 Delta Troponin T 1.06 ABS# (0-10) 06/20/23 21:45 Total Protein 5.9 g/dL (6.6-8.7) L D 06/21/23 05:07 Albumin 3.7 g/dL (3.5-5.2) 06/21/23 05:07 Globulin 2.2 g/dL (1.3-4.6) 06/21/23 05:07 Urine Color Colorless (Yellow) 06/21/23 21:43 Urine Appearance Clear (CLEAR) 06/21/23 21:43 Urine pH 5 (5-7) 06/21/23 21:43 Ur Specific Mason 1.010 (1.005-1.030) 06/21/23 21:43 Urine Protein Neg (Negative) 06/21/23 21:43 Urine Glucose (UA) Norm (Normal) 06/21/23 21:43 Urine Ketones Negative (Negative) 06/21/23 21:43 Urine Blood Neg (Negative) 06/21/23 21:43 Urine Nitrate Negative (Negative) 06/21/23 21:43 Urine Bilirubin Neg (Negative) 06/21/23 21:43 Urine Urobilinogen Neg mg/dL (Negative) 06/21/23 21:43 Ur Leukocyte Esterase Trace (Negative) H 06/21/23 21:43 Urine RBC None /hpf (0-2) 06/21/23 21:43 Urine WBC 5-10 /hpf (0-5) H 06/21/23 21:43 Ur Squamous Epith Cells 0-4 /hpf (0-5) H 06/21/23 21:43 Amorphous Sediment Not Reportable 06/21/23 21:43 Urine Bacteria Trace /hpf (NONE) 06/21/23 21:43 Influenza Type A Ag negative (Negative) 06/20/23 19:50 Influenza Type B Ag negative (Negative) 06/20/23 19:50 SARS-CoV-2 Ag (Rapid) negative (Negative) 06/20/23 19:50 Vitals Last Vital Signs Temp 98.1 F 06/23/23 08:14 Pulse 88 06/23/23 09:31 Resp 16 06/23/23 09:31 BP 137/66 06/23/23 08:14 Pulse Ox 92 06/23/23 09:31 O2 Del Method Room Air 06/23/23 09:31 O2 Flow Rate 3 06/22/23 20:00 FiO2 30 06/22/23 01:42 Discharge Plan Discharge Patient Disposition: Home Condition: Stable Prescriptions: New furosemide [Lasix] 20 mg tablet 20 mg PO DAILY Qty: 7 0RF levofloxacin 750 mg tablet 750 mg PO DAILY 10 Days Qty: 10 0RF potassium chloride 20 mEq tablet extended release 20 meq PO DAILY Qty: 7 0RF Continued zolpidem [Ambien] 5 mg tablet 5 mg PO BEDTIME PRN (Reason: Sleep) ascorbate calcium (vitamin C) 500 mg tablet 1,000 mg PO BID sotalol 80 mg tablet 40 mg PO BID Qty: 90 3RF methenamine hippurate 1 gram tablet 1 g PO BID Qty: 60 12RF Rx Instructions: Take 1000 mg of vitamin C with each dose of methenamine pantoprazole 40 mg tablet,delayed release (DR/EC) 40 mg PO DAILY Qty: 90 3RF acetaminophen [Tylenol] 325 mg Tablet 650 mg PO BEDTIME cetirizine 10 mg Tablet 10 mg PO DAILY PRN (Reason: Allergic Reaction) niacin 500 mg Tablet 500 mg PO DAILY cholecalciferol (vitamin D3) 2,000 unit Tablet 2,000 unit PO DAILY cyanocobalamin (vitamin B-12) 1,000 mcg Capsule 1,000 mcg PO DAILY Aspir-81 81 mg Tablet,Delayed Release (Dr/Ec) 81 mg PO BEDTIME warfarin 3 mg tablet 3 mg PO BEDTIME citalopram 20 mg tablet 20 mg PO QAM amlodipine 10 mg tablet 10 mg PO QAM levothyroxine 50 mcg tablet 50 mcg PO QAM Discharge Orders: Discharge Order (Routine); Ordered 06/23/23 Ordered By: Vaishnavi Navarro Referrals: Abelardo Gannon DO [Primary Care Provider] - Patient Instructions: Opioid Safety Discharge Attestations Time Spent in Discharge Care*: greater than 30 min Quality Metrics Clinical Quality Measures [ No reported AMI, CVA or VTE this stay] Coding Level of Care Code Acute Code for Chg Fwd Diagnoses Sepsis A41.9 Cat bite of ankle S91.052A; W55.01XA Encounter type: initial encounter Laterality: left Fever R50.81 Fever type: due to other condition Urinary tract infection N10 Urinary tract infection type: acute pyelonephritis Recurrent UTI N39.0 Atrial fibrillation I48.0 Atrial fibrillation type: paroxysmal
--- NOTE | 2023-06-23 13:04 | PC.SOCIAL ---
Pg 2 IMM Explained to pt Pg 2 IMM. No questions voiced. Provided pt a copy. Initialed, dated, & timed a copy & placed in chart.
== END 2023-06-23 13:55 | disposition home or self-care (01) | DRG 603 ==
LOC: ER 21:42 → MEDSURG 21:48
PROVIDERS: Admitting Provider Internal Medicine; Emergency Provider Family Medicine; PCP Family Medicine; Visit Provider Internal Medicine
DX: L03.116 Cellulitis of left lower limb (principal); N10 Acute pyelonephritis; B96.20 Unspecified Escherichia coli [E. coli] as the cause of diseases classified elsewhere; Z87.440 Personal history of urinary (tract) infections; I48.0 Paroxysmal atrial fibrillation; S91.052A Open bite, left ankle, initial encounter; W55.01XA Bitten by cat, initial encounter; Z79.82 Long term (current) use of aspirin; Z79.01 Long term (current) use of anticoagulants; I73.9 Peripheral vascular disease, unspecified; Z86.73 Personal history of transient ischemic attack (TIA), and cerebral infarction without residual deficits; I10 Essential (primary) hypertension; I25.10 Atherosclerotic heart disease of native coronary artery without angina pectoris; Z95.5 Presence of coronary angioplasty implant and graft; I71.40 Abdominal aortic aneurysm, without rupture, unspecified; Z87.891 Personal history of nicotine dependence; R00.0 Tachycardia, unspecified; E87.70 Fluid overload, unspecified; R23.0 Cyanosis
CPT/HCPCS: 36415; 36600; 51702; 71045; 73610; 80048; 80051; 80053; 81001; 82330; 82805; 83605; 84484; 85025; 85610; 87040; 87077; 87086; 87186; 87426; 87804; 90471; 90714; 93005; 93306; 94640; 94660; 94760; 96372; 97116; 97161; 99285; C9113; J0696; J1650; J1885; J1940; J2185; J3490; J7030; J7120; Q3014

== ENCOUNTER → 2023-06-27 12:57 | Outpatient (BNVA) | payer MEDICARE, OTHER, SELFPAY | PROVIDERS: PCP Family Medicine; Visit Provider Family Medicine | DX: N39.0 Urinary tract infection, site not specified (principal); E87.1 Hypo-osmolality and hyponatremia; M79.604 Pain in right leg; M79.605 Pain in left leg | CPT/HCPCS: 80048; 81000; 85610 ==

== ENCOUNTER → 2023-08-05 13:06 | Outpatient (BNVA) | payer MEDICARE, OTHER, SELFPAY | PROVIDERS: PCP Family Medicine; Visit Provider Family Medicine | DX: N39.0 Urinary tract infection, site not specified (principal) | CPT/HCPCS: 81000 ==

== ENCOUNTER → 2023-08-22 10:39 | Outpatient (BNVA) | payer MEDICARE, OTHER, SELFPAY | PROVIDERS: PCP Family Medicine; Visit Provider Nurse Practitioner Family | DX: I71.40 Abdominal aortic aneurysm, without rupture, unspecified (principal); I25.10 Atherosclerotic heart disease of native coronary artery without angina pectoris; I10 Essential (primary) hypertension; I48.0 Paroxysmal atrial fibrillation; Z79.01 Long term (current) use of anticoagulants; Z87.891 Personal history of nicotine dependence | CPT/HCPCS: 99214 ==

== ENCOUNTER → 2023-10-26 13:13 | Outpatient (BNVA) | payer MEDICARE, OTHER, SELFPAY | PROVIDERS: PCP Family Medicine; Visit Provider Family Medicine | DX: N39.0 Urinary tract infection, site not specified (principal) | CPT/HCPCS: 81000; 87077; 87086; 87184 ==

== ENCOUNTER → 2023-11-24 11:16 | Outpatient (BNVA) | payer MEDICARE, OTHER, SELFPAY | PROVIDERS: PCP Family Medicine; Visit Provider Family Medicine | DX: N39.0 Urinary tract infection, site not specified (principal) | CPT/HCPCS: 81000; 87077; 87086; 87184 ==

== ENCOUNTER → 2024-04-11 11:53 | Outpatient (BNVA) | payer MEDICARE, OTHER, SELFPAY | PROVIDERS: PCP Family Medicine; Visit Provider Internal Medicine Cardiovascular Disease | DX: I48.0 Paroxysmal atrial fibrillation (principal); I10 Essential (primary) hypertension; I25.10 Atherosclerotic heart disease of native coronary artery without angina pectoris; Z72.0 Tobacco use; E78.01 Familial hypercholesterolemia; Z79.01 Long term (current) use of anticoagulants; I73.9 Peripheral vascular disease, unspecified; I71.40 Abdominal aortic aneurysm, without rupture, unspecified | CPT/HCPCS: 99213 ==

== ENCOUNTER → 2024-06-11 10:37 | Outpatient (BNVA) | payer MEDICARE, OTHER, SELFPAY | PROVIDERS: PCP Family Medicine; Visit Provider Family Medicine | DX: N39.0 Urinary tract infection, site not specified (principal) | CPT/HCPCS: 81000; 87086 ==

== ENCOUNTER → 2024-09-05 14:54 | Outpatient (BNVA) | payer MEDICARE, OTHER, SELFPAY | PROVIDERS: PCP Family Medicine; Visit Provider Family Medicine | DX: N39.0 Urinary tract infection, site not specified (principal) | CPT/HCPCS: 81000; 87077; 87086; 87184 ==

== ENCOUNTER → 2024-09-18 14:58 | Outpatient (BNVA) | payer MEDICARE, OTHER, SELFPAY | PROVIDERS: PCP Family Medicine; Visit Provider Internal Medicine Cardiovascular Disease | DX: I48.0 Paroxysmal atrial fibrillation (principal); R06.02 Shortness of breath; I25.10 Atherosclerotic heart disease of native coronary artery without angina pectoris; I10 Essential (primary) hypertension; I71.40 Abdominal aortic aneurysm, without rupture, unspecified; Z87.891 Personal history of nicotine dependence; Z79.01 Long term (current) use of anticoagulants; I73.9 Peripheral vascular disease, unspecified | CPT/HCPCS: 99214 ==

== ENCOUNTER → 2024-09-20 09:21 | Outpatient (BNVA) | payer MEDICARE, OTHER, SELFPAY | PROVIDERS: PCP Family Medicine; Visit Provider Family Medicine | DX: N39.0 Urinary tract infection, site not specified (principal) | CPT/HCPCS: 81000; 87077; 87086; 87184 ==

== ENCOUNTER 2024-09-25 10:06 | Outpatient (CLI) | payer MEDICARE, OTHER, SELFPAY ==
--- NOTE | 2024-09-25 | ECG_ITS ---
[facility] [facility] Test Date: 2024-09-25 Pat Name: Janae Kern Department: Room: Gender: Female Family Law Legal Assistant: : 1940 Requested By: Vaishnavi Mendoza Order Number: [id number] Marcial MD: Villa Gilbert M.D. Interpretive Statements LEXISCAN SESTAMIBI STRESS TEST Procedure: At the baseline, the blood pressure was 158/65 mmHg with a heart rate of 68 bpm. The electrocardiogram showed atrial fibrillation normal axis with normal ST and T's. The Lexiscan was infused over a period of 20 seconds. A total of 0.4 mg of Lexiscan was infused. The stress phase was continued for a total of 5 minutes. Heart rate was at the end of stress phase was 90 bpm and a blood pressure of 162/81 mmHg. The EKG at the peak infusion revealed atrial fibrillation with no significant ST-T wave changes. Sestamibi was injected 20 seconds after the Lexiscan infusion. Blood pressure at the end of recovery phase was 155/69 mmHg with a heart rate of 80 bpm. Conclusion: 1. Normal EKG response to Lexiscan infusion 2. No Lexiscan induced chest pain or cardiac arrhythmia. 3. Normal blood pressure and heart rate response. 4. Sestamibi/sestamibi perfusion scan pending; see separate report. Electronically Signed On 10-01-2024 08:32:19 PUBLIC AFFAIRS MANAGER by Villa Gilbert M.D. [email or web address]
[2024-09-25 10:32] VITALS: BMI 24.7
--- NOTE | 2024-09-25 10:37 | NMCV_ITS ---
NM momo perf SPECT r/s* [id number] Janae Kern Age: 84 Gender: F : 1940 Exam Date: 09/25/2024 11:48 Ordering Phys: Vaishnavi Mendoza MD ([email or web address]) Technologist: JAZZMINE Segal Exam Location: [facility] Indications: cp STRESS TEST Please see separate stress test report in [facility] for full findings IMAGE PROTOCOL Rest/Stress 1 Lexiscan Day Radiopharmaceutical Dose (mCi) Administration Site Administered by Rest: Tc-99m 10.7 IV JAZZMINE Segal Sestamibi Stress:Tc-99m 32.2 IV JAZZMINE Kimble Sestamibi Rest: 25-Sep-2024 60 Discovery 630 Stress: 25-Sep-2024 30 Discovery 630 0.4mg Lexiscan. Supine position only as patient was unable to lay prone. SPECT RESULTS Technical Quality: Good Raw Data Analysis: Normal Image Corrections: No attenuation or motion correction applied Summed Stress Score: 2 Summed Rest Score: 1 Summed Difference Score: 1 PERFUSION FINDINGS Small sized area of partially reversible perfusion defect seen in inferolateral wall. This is consistent with small area of prior infarct with minimal markos- infarct ischemia in left circumflex artery territory FUNCTIONAL RESULTS (calculated via Gated SPECT) Stress Image LV EF (%): 81 Stress EDV (mL):70 TID: 0.97 Stress ESV (mL):13 FUNCTIONAL FINDINGS: There is normal left ventricular systolic function. IMPRESSIONS 1. 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 2. LV systolic function is normal Villa Gilbert MD (Electronically Signed) Final Date: 26 September 2024 17:23 S
[2024-09-25] MEDS: regadenoson 0.4 Mg/5 ml Syringe IVP (12:20)
[2024-09-25 12:37] VITALS: BP 155/64; PULSE 80
== END 2024-09-25 10:07 | disposition home or self-care (01) ==
PROVIDERS: PCP Family Medicine; Visit Provider Internal Medicine Cardiovascular Disease
DX: R07.9 Chest pain, unspecified (principal); R06.02 Shortness of breath; R94.39 Abnormal result of other cardiovascular function study
CPT/HCPCS: 36415; 78452; 93017; 96374; A9500; J2785

== ENCOUNTER → 2024-10-30 11:46 | Outpatient (BNVA) | payer MEDICARE, OTHER, SELFPAY | PROVIDERS: PCP Family Medicine; Visit Provider Family Medicine | DX: N39.0 Urinary tract infection, site not specified (principal) | CPT/HCPCS: 81000; 87086 ==

== ENCOUNTER → 2024-11-19 13:36 | Outpatient (BNVA) | payer MEDICARE, OTHER, SELFPAY | PROVIDERS: PCP Family Medicine; Visit Provider Family Medicine | DX: N39.0 Urinary tract infection, site not specified (principal) | CPT/HCPCS: 81000 ==

== ENCOUNTER → 2024-11-20 09:54 | Outpatient (BNVA) | payer MEDICARE, OTHER, SELFPAY | PROVIDERS: PCP Family Medicine; Visit Provider Family Medicine | DX: R30.0 Dysuria (principal) | CPT/HCPCS: 87086 ==

== ENCOUNTER 2025-01-31 16:08 | Outpatient (CLI) | payer MEDICARE, OTHER, SELFPAY ==
--- NOTE | 2025-01-31 16:16 | CT_ITS ---
WS: [id number] CT ABDOMEN AND PELVIS WITH AND WITHOUT CONTRAST HISTORY: RECURRENT UTI TECHNIQUE: Unenhanced 5 mm axial imaging first performed through the abdomen. Post contrast imaging through the abdomen and pelvis. Oral contrast has not been provided. Sagittal and coronal reformats are submitted. All CT scans at [facility] use at least one of these dose optimization techniques: automated exposure control; mA and/or kV adjustment per patient size (includes targeted exams where dose is matched to clinical indication); or iterative reconstruction. CONTRAST: Omnipaque 350; 95 mL IV. DLP: 1245.76 mGy.cm COMPARISON: 07/12/2022, 02/27/2013 Stable 5 mm noncalcified nodule RIGHT lung base. Benign granuloma RIGHT lung base mild cardiomegaly. Moderate size hiatal hernia. RIGHT kidney: 7.5 cm in length. Diffuse cortical thinning and atrophy. More focal cortical thinning lower pole. Vascular calcifications. No renal obstruction. Incomplete opacification of the ureter on delayed imaging but there is no obstructive pattern. Distal RIGHT ureter is obscured by artifact from patient's hip prosthesis. LEFT kidney: 8.5 cm in length. Mild atrophy and cortical thinning with irregularity. Vascular calcification. No obstruction or solid mass. No uroepithelial lesions. Urinary bladder is poorly visualized due to artifact from patient's hip prosthesis. Bladder wall does appear slightly thickened but it is also under distended. Normal liver. Normal portal vein. Gallbladder is absent. Normal spleen with granulomata. Mild pancreatic atrophy. No adrenal mass. Moderate atherosclerotic plaque aorta. 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 No GI tract obstruction. No colitis. Normal appendix. Mild diverticular disease in the sigmoid colon. Prior RIGHT hip ORIF. No destructive bone lesions. CT/CT abdomen pelvis wo/w [id number] IMPRESSION: 1. Moderate atrophy RIGHT kidney with diffuse cortical thinning. 2. Minimal atrophy LEFT kidney. 3. No renal hydronephrosis. 4. No uroepithelial lesions or solid renal masses. 5. Limited evaluation of the urinary bladder due to beam hardening artifact fr om the RIGHT hip prosthesis. Bladder is not distended and the wall does appear mildly prominent. Bladder wall prominence is probably on the basis of under dis tention. 6. Prior cholecystectomy. 7. Stable 5 mm nodule at the RIGHT lung base. 8. Atherosclerotic plaque abdominal aorta and iliac arteries. 9. Mild diverticular disease sigmoid colon.
[2025-01-31 16:41] LABS: Blood Urea Nitrogen 15 mg/dL (8-23)
[2025-01-31] MEDS: iohexol 350 mg/mL 500 mL Btl (per mL) IV (17:18)
== END 2025-01-31 16:09 | disposition home or self-care (01) ==
PROVIDERS: PCP Family Medicine; Visit Provider Nurse Practitioner Family
DX: N39.0 Urinary tract infection, site not specified (principal); N26.1 Atrophy of kidney (terminal); R93.421 Abnormal radiologic findings on diagnostic imaging of right kidney; Z96.89 Presence of other specified functional implants; Z90.49 Acquired absence of other specified parts of digestive tract; R91.1 Solitary pulmonary nodule; I70.0 Atherosclerosis of aorta; I70.8 Atherosclerosis of other arteries; K57.30 Diverticulosis of large intestine without perforation or abscess without bleeding; J84.10 Pulmonary fibrosis, unspecified; I51.7 Cardiomegaly; K44.9 Diaphragmatic hernia without obstruction or gangrene; N28.89 Other specified disorders of kidney and ureter; R93.422 Abnormal radiologic findings on diagnostic imaging of left kidney; K86.89 Other specified diseases of pancreas; R93.5 Abnormal findings on diagnostic imaging of other abdominal regions, including retroperitoneum
CPT/HCPCS: 74178; 82565; 84520

== ENCOUNTER → 2025-03-26 11:20 | Outpatient (BNVA) | payer MEDICARE, OTHER, SELFPAY | PROVIDERS: PCP Family Medicine; Visit Provider Internal Medicine Cardiovascular Disease | DX: I48.0 Paroxysmal atrial fibrillation (principal); Z79.01 Long term (current) use of anticoagulants; I73.9 Peripheral vascular disease, unspecified; Z72.0 Tobacco use; Z95.5 Presence of coronary angioplasty implant and graft; Z86.73 Personal history of transient ischemic attack (TIA), and cerebral infarction without residual deficits | CPT/HCPCS: 99214 ==

== ENCOUNTER → 2025-08-12 15:15 | Outpatient (BNVA) | payer MEDICARE, OTHER, SELFPAY | PROVIDERS: PCP Family Medicine; Visit Provider Family Medicine | DX: I10 Essential (primary) hypertension (principal); E03.9 Hypothyroidism, unspecified | CPT/HCPCS: 80053; 80061; 84439; 84443; 85025; 87086 ==

== ENCOUNTER → 2025-09-02 14:16 | Outpatient (BNVA) | payer MEDICARE, OTHER, SELFPAY | PROVIDERS: PCP Family Medicine; Visit Provider Family Medicine | DX: N39.0 Urinary tract infection, site not specified (principal) | CPT/HCPCS: 87086 ==

== ENCOUNTER → 2025-09-25 10:38 | Outpatient (BNVA) | payer MEDICARE, OTHER, SELFPAY | PROVIDERS: PCP Family Medicine; Referring Provider Internal Medicine Cardiovascular Disease; Visit Provider Nurse Practitioner Family | DX: I48.0 Paroxysmal atrial fibrillation (principal); R00.1 Bradycardia, unspecified; R94.31 Abnormal electrocardiogram [ECG] [EKG]; Z79.01 Long term (current) use of anticoagulants; R63.4 Abnormal weight loss; Z68.22 Body mass index [BMI] 22.0-22.9, adult | CPT/HCPCS: 93005; 99214 ==